=== PATIENT | male | born 1960 | race Caucasian/White ===

== ENCOUNTER 2020-02-06 14:13 | Inpatient (IN) | payer BC ==
--- NOTE | 2020-02-06 16:58 | PDOC ---
Documentation entered by Tatyana Yarbrough SCRIBE, acting as scribe for Jayleen Prado MD. Jayleen Prado MD: This documentation has been prepared by the bobbiibeZenon Ana, SCRIBE, under my direction and personally reviewed by me in its entirety. I confirm that the documentation accurately reflects all work, treatment, procedures, and medical decision making performed by me. Attending Attestation - Resident Resident Name: Maximiliano Bain - ED Attending Attestation I have performed the following: I have examined & evaluated the patient, The case was reviewed & discussed with the resident, I agree w/resident's findings & plan, Exceptions are as noted - HPI HPI: 02/06/20 14:53 Patient is a 59 year old male with a significant past medical history of Diabetes here currently at work visiting from [place] complaining of a wound on the bottom of his left foot states he just noticed it today he went to urgent care at [facility] and was referred to see a grain picker who subsequently sent him to the ER. He denies any pain in his foot however he does have neuropathy no fever no chills no chest pain or shortness of breath he was evaluated [place] x-ray also showed chronic degenerative changes at the MCP joint but no periosteal elevation. Not currently on any antibiotics he scheduled to be here in [place] for several weeks does not have a PCP here in [place]... who presents to the ED with ... pt h/o renal ca, s/p single nephrectomy. Allergies: NKDA 02/06/20 16:54 meds: metformin, glipizide januvia - Physicial Exam PE: 02/06/20 16:55 Awake alert no acute distress lungs are clear bilaterally heart is regular 30 murmurs or gallops abdomen soft nontender extremities are warm and perfused examination of the left foot demonstrates erythema with redness and streaking up the anterior peña he does have a quarter sized wound on the plantar surface of his great toe there is no drainage noted however significant swelling and tenderness he has 2+ DP PT pulses bilaterally no crepitus appreciated neurologically patient is awake alert and oriented x3 - Medical Decision Making 02/06/20 16:55 59-year-old male history of diabetes previous tobacco use quit 8 years ago here with a left foot wound and secondary cellulitis plan likely admit for IV antibiotics we will repeat x-ray as they are not visible here will treat with IV clindamycin and admit due to concerns for immunocompromise poor follow-up and streaking up the leg possible Heart Score/ECG Review #1 General ECG Interpretation: Sinus Rhythm, Normal Intervals, No acute ischemic changes Compared to previous ECG there are: Other (sinus bradycardia 55 bpm. wide p waves.) Discharge - Discharge Information Problems reviewed: Yes Clinical Impression/Diagnosis: Foot ulcer due to secondary DM, Cellulitis, HARRISON (acute kidney injury) - Admission Yes - Follow up/Referral - Patient Discharge Instructions - Post Discharge Activity
[2020-02-06 17:08] LABS: BASO % 1.2 % (0-2.0); EOS % 2.2 % (0-4.5); HEMATOCRIT 38.4 % (35.4-49); HEMOGLOBIN 12.5 GM/dL (11.7-16.9); LYMPH % 23.5 % (8-40); MCH 28.5 pg (25.7-33.7); MCHC 32.5 g/dl (32.0-35.9); MEAN CELL VOLUME 87.7 fl (80-96); MEAN PLT VOLUME 8.8 fl (7.5-11.1); MONO % 7.7 % (3.8-10.2); NEUT % 65.4 % (42.8-82.8); PLATELET COUNT 269 K/MM3 (134-434); RBC 4.38 M/mm3 (4.00-5.60); RDW 15.3 % (11.9-15.9); WHITE BLOOD COUNT 6.9 K/mm3 (4.0-10.0)
[2020-02-06 17:35] LABS: ALBUMIN 3.9 g/dl (3.4-5.0); BILIRUBIN,TOTAL 0.2 mg/dL (0.2-1); BLOOD UREA NITROGEN 24.7 mg/dL (7-18); POTASSIUM 4.2 mmol/L (3.5-5.1); TOT PROT 7.7 g/dl (6.4-8.2)
--- NOTE | 2020-02-06 18:26 | PDOC ---
History of Present Illness - General Chief Complaint: Wound Stated Complaint: LT FOOT INFECTION Time Seen by Provider: 02/06/20 14:31 - History of Present Illness Initial Comments: 59 YOM h/o diabetes, renal cancer s/p nephrectomy presents with left foot wound which he noticed today. Patient reports that he noticed wound today, presented to Urgent Care at [facility] was referred to a service desk team lead who recommended he present to the ED. He denies pain, although reports neuropathy. [place] x-ray showed chronic degenerative changes at the MCP joint but no periosteal elevation. Patient denies fever, chill, CP, SOB, N/V/D. Constitutional: No Weight Change, No Fever, No Chills, No Night Sweats, No Fatigue, No Malaise ENT/Mouth: No Hearing Changes, No Ear Pain, No Nasal Congestion, No Sinus Pain, No Hoarseness, No sore throat, No Rhinorrhea, No Swallowing Difficulty Eyes: No Eye Pain, No Swelling, No Redness, No Foreign Body, No Discharge, No Vision Changes Cardiovascular: No Chest Pain, No SOB, No PND, No Dyspnea on Exertion, No Orthopnea, No Claudication, No Edema, No Palpitations Respiratory: No Cough, No Sputum, No Wheezing, No Smoke Exposure, No Dyspnea Gastrointestinal: No Nausea, No Vomiting, No Diarrhea, No Constipation, No Pain, No Heartburn, No Anorexia, No Dysphagia, No Hematochezia, No Melena, No Flatulence, No Jaundice Genitourinary: No Dysmenorrhea, No DUB, No Dyspareunia, No Dysuria, No Urinary Frequency, No Hematuria, No Urinary Incontinence, No Urgency, No Flank Pain, No Urinary Flow Changes, No Hesitancy Musculoskeletal: No Arthralgias, No Myalgias, No Joint Swelling, No Joint Stif fness, No Back Pain, No Neck Pain, No Injury History Skin: No Skin Lesions, No Pruritis, No Hair Changes, No Breast/Skin Changes, No Nipple Discharge Neuro: No Weakness, No Numbness, No Paresthesias, No Loss of Consciousness, No Syncope, No Dizziness, No Headache, No Coordination Changes, No Recent Falls Psych: No Anxiety/Panic, No Depression, No Insomnia, No Personality Changes, No Delusions, No Rumination, No SI/HI/AH/VH, No Social Issues, No Memory Changes, No Violence/Abuse Hx., No Eating Concerns Heme/Lymph: No Bruising, No Bleeding, No Transfusions History, No Lymphadenopathy Endocrine: No Polyuria, No Polydipsia, No Temperature Intolerance Past History - Medical History Allergies/Adverse Reactions: Allergies Allergy/AdvReac Type Severity Reaction Status Date / Time No Known Allergies Allergy Verified 02/06/20 17:22 Home Medications: Ambulatory Orders Glipizide-Metformin 5-500 mg 1 tab PO TID 02/06/20 Sitagliptin Phosphate [Januvia] 25 mg PO HS 02/06/20 Cancer: Yes (NEPHRECTOMY) COPD: No Diabetes: Yes (NIDDM) Other medical history: Neuropathy - Surgical History Neurologic Surgery: Yes (NEPHRECTOMY) - Immunization History Immunization Up to Date: No - Psycho-Social/Smoking History Smoking History: Former smoker Have you smoked in the past 12 months: No Information on smoking cessation initiated: No - Substance Abuse Hx (Audit-C & DAST Scrn) How often the patient has a drink containing alcohol: Monthly or less Score: In Men: 4 or > Positive; In Women: 3 or > Positive: 1 Screen Result (Pos requires Nsg. Audit-10AR): Negative In the last yr the pt used illegal drug/Rx for NonMed reason: No Score: Yes response is considered Positive: 0 Screen Result (Positive result requires Nsg. DAST-10): Negative *Physical Exam - Vital Signs Last Vital Signs Temp Pulse Resp BP Pulse Ox 97.7 F 70 18 113/55 L 100 02/06/20 14:17 02/06/20 14:17 02/06/20 14:17 02/06/20 14:17 02/06/20 14:17 - Physical Exam General Appearance: Yes: Nourished, Appropriately Dressed HEENT: positive: EOMI, SUSY, Normal ENT Inspection, Normal Voice Neck: positive: Trachea midline, Normal Thyroid Respiratory/Chest: positive: Lungs Clear, Normal Breath Sounds Cardiovascular: positive: Regular Rhythm, Regular Rate, S1, S2 Gastrointestinal/Abdominal: positive: Normal Bowel Sounds, Flat, Soft Musculoskeletal: positive: Normal Inspection Extremity: positive: Other (2 CM wound on plantar surface of left big toe) Integumentary: positive: Normal Color, Dry, Warm Neurologic: positive: gastroenterology technician II-XII NML intact, Fully Oriented, Alert, Normal Mood/Affect, Normal Response, Motor Strength 5/5 ED Treatment Course - LABORATORY CBC & Chemistry Diagram: 02/06/20 16:50 02/06/20 16:50 - ADDITIONAL ORDERS Additional order review: Laboratory Results 02/06/20 02/06/20 16:50 16:50 Sodium 137 Potassium 4.2 Chloride 110 H Carbon Dioxide 20 L Anion Gap 7 L BUN 24.7 H Creatinine 2.0 H Est GFR (CKD-EPI)AfAm 40.54 Est GFR (CKD-EPI)NonAf 34.98 Random Glucose 247 H Lactic Acid 1.4 Calcium 9.0 Total Bilirubin 0.2 AST 17 ALT 27 Alkaline Phosphatase 95 C-Reactive Protein 1.5 H Total Protein 7.7 Albumin 3.9 02/06/20 16:50 RBC 4.38 MCV 87.7 MCHC 32.5 RDW 15.3 MPV 8.8 Neutrophils % 65.4 Lymphocytes % 23.5 Monocytes % 7.7 Eosinophils % 2.2 Basophils % 1.2 - RADIOLOGY Radiology Studies Ordered: Category Date Time Status ANKLE & FOOT-LEFT* [RAD] Stat Radiology 02/06/20 16:41 Completed Medical Decision Making - Medical Decision Making 59 YOM h/o diabetes, renal cancer s/p nephrectomy presents with left foot wound which he noticed today. Patient reports that he noticed wound today, presented to Urgent Care at [facility] was referred to a service desk team lead who recommended he present to the ED. He denies pain, although reports neuropathy. [place] x-ray showed chronic degenerative changes at the MCP joint but no periosteal elevation. Patient denies fever, chill, CP, SOB, N/V/D. Vitals on arrival wnl. Exam reveals 2 cm wound on plantar surface of left big toe. ddx: cellulitis, osteomyelitis plan: CBC, CMP, lactate, blood cultures, x ray left foot, IV antibiotics. reassess: labs wnl, x ray wnl, will admit patient for IV antibiotics. dispo: admit for IV antibiotics. 02/06/20 19:39 Discharge - Discharge Information Problems reviewed: Yes Clinical Impression/Diagnosis: Foot ulcer due to secondary DM, Cellulitis, HARRISON (acute kidney injury) - Follow up/Referral - Patient Discharge Instructions - Post Discharge Activity
[2020-02-06] MEDS ORDERED: VANCOMYCIN 1 GM in D5W (PRE-DOCKED) 1,000 MG/250 ML IVPB ONE (18:28)
[2020-02-06] MEDS ORDERED: PIPERACILLIN/TAZOB 3.375 GM 3.375 GM in DEXTROSE 5%-WATER - 50 ML IVPB ONE (18:30)
[2020-02-06] MEDS ORDERED: PIPERACILLIN/TAZOB 3.375 GM 3.375 GM/50 ML BAG IVPB ONE (19:11)
--- NOTE | 2020-02-06 19:32 | HP ---
CHIEF COMPLAINT: Leg ulcer of unknown noticed today PCP: Julito Sinclair in [place] HISTORY OF PRESENT ILLNESS: Patient is a 59yo DM for 10yrs, now presenting with Lt foot ulcer on dorsum of left foot ulcer of unknown duration. Patient noticed a black ulcer on his left foot this morning and decided to go urgent care at [facility] where he was made to see a entry level project coordinator and his wound got debrided before he was referred to the ED. Patient denies foot pain, however there is an associated numbness and tingling on both feet. Numbness occasionally feels like pain and prevents the patient from falling asleep prompting patient to wear compression stockings to relieve the pain and hopefully fall asleep. When asked what he thinks may have caused his ulcer, he assumes a plastic tape he may have applied to hold antibiotics over his ingrowing toe nail may have pressed and injured the dorsum of the toe without him feeling the pain. Patient denies fever, chills, chest pain or shortness of breath. No dysuria or hematuria. Patient however expereinces occasional urinary frequency which he says happens only when his blood sugar is high. ER course was notable for: (1)Vancomysin (2)Zosyn (3) Recent Travel: Lives in [place], came to [place] on a business trip PAST SURGICAL HISTORY: Lt. 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 Has insurance with [employer] Smoking:Stopped 8yrs ago. Smoked 3ppd/>30yrs Alcohol:Ocassionally about 1-2 bottles/month Drugs: None FHx: Alzheimer disease in mother, DM and WA in father and aunties, Narcolepsy in cousin Allergies: No Known Allergies to food, meds or latex HOME MEDICATIONS: Home Medications Medication Instructions Recorded Glipizide-Metformin 5-500 mg 1 tab PO TID 02/06/20 Sitagliptin Phosphate [Januvia] 25 mg PO HS 02/06/20 REVIEW OF SYSTEMS: Negative except as above Vital Signs - 24 hr 02/06/20 14:17 Temperature 97.7 F Pulse Rate 70 Respiratory 18 Rate Blood Pressure 113/55 L O2 Sat by Pulse 100 Oximetry (%) PHYSICAL EXAMINATION GENERAL: Awake, alert, and fully oriented, in no acute distress. HEAD: Normal with no signs of trauma. EYES: Blurry vision in Left eye, sclera anicteric, conjunctiva clear. No lid lag. Fundoscopy: Retinal vessels not well visualized NECK: Normal range of motion, supple without lymphadenopathy, JVD, or masses. LUNGS: Vesicular breath sounds equal b/l, clear to auscultation bilaterally. No wheezes, and no crackles. No accessory muscle use. HEART: Regular rate and rhythm, normal S1 and S2 without murmur, rub or gallop. ABDOMEN: Soft, nontender, not distended, normoactive bowel sounds, no masses. No hepatomegaly or splenomegaly. MUSCULOSKELETAL: No Rt CVA tenderness. Left kidney absent-Nephrectomy UPPER EXTREMITIES: 2+ pulses, warm, well-perfused. No cyanosis. No clubbing. No peripheral edema. LOWER EXTREMITIES: 2+ pulses, warm, well-perfused. No calf tenderness. No peripheral edema. Dry wound on dorsum of Lt big toe measuring about 1cm wide with a scab over it, non tender, sensation 2/3 with associated b/l foot numbness and tingling sensation. Power is 5/5 on all limbs, sensation is reduced on distal foot 1/3 b/l NEUROLOGICAL: Cranial nerves II-XII intact. Normal speech. Limited vision in right eye when left eye fully closed PSYCHIATRIC: Cooperative. Good eye contact. Appropriate mood and affect. SKIN: Warm, dry, normal turgor,scattered capillary hemangiomas and skin tags over chest wall and a single skin tag on Rt fore head, normal capillary refill. Laboratory Results - last 24 hr 02/06/20 02/06/20 02/06/20 16:50 16:50 16:50 WBC 6.9 RBC 4.38 Hgb 12.5 Hct 38.4 MCV 87.7 MCH 28.5 MCHC 32.5 RDW 15.3 Plt Count 269 MPV 8.8 Absolute Neuts (auto) 4.5 Neutrophils % 65.4 Lymphocytes % 23.5 Monocytes % 7.7 Eosinophils % 2.2 Basophils % 1.2 Nucleated RBC % 0 Sodium 137 Potassium 4.2 Chloride 110 H Carbon Dioxide 20 L Anion Gap 7 L BUN 24.7 H Creatinine 2.0 H Est GFR (CKD-EPI)AfAm 40.54 Est GFR (CKD-EPI)NonAf 34.98 Random Glucose 247 H Lactic Acid 1.4 Calcium 9.0 Total Bilirubin 0.2 AST 17 ALT 27 Alkaline Phosphatase 95 C-Reactive Protein 1.5 H Total Protein 7.7 Albumin 3.9 ASSESSMENT/PLAN: #DIABETIC FOOT ULCER: -Known diabetic -Ulcer on dorsum of Left big toe -Per hx, last 3 A1c 12, 9,10 -Wound and blood culture -MRI of Left foot -N/S 84cc/hr -Consult ID -Continue Vancomysin and Zosyn -Daily wound dressing #UNCONTROLLED DM: -Known DM patient -Per patient, last 3 A1c are 12, 9 and 10 -Patient on Januvia 25mg and Glipizide-Metformin 5/500 tid -Hold home OHGA for now -Implement ISS -BGM ACHS -Patient educated on the importance of medication compliance, exercise and healthy diet on optimal blood glucose control -Pt to follow up with PCP in [place], Opthalmologist and Septic Tank Cleaner on D/C #AZOTHEMIA: -Raised BUN -Patient is probably dehydrated -Continue IV N/S 84cc/hr Family Medical History Family History: As Documented Visit type - Emergency Visit Emergency Visit: Yes ED Registration Date: 02/06/20 Care time: The patient presented to the Emergency Department on the above date and was hospitalized for further evaluation of their emergent condition. - New Patient This patient is new to me today: Yes Date on this admission: 02/06/20 - Critical Care Critical Care patient: No ATTENDING PHYSICIAN STATEMENT I saw and evaluated the patient. I reviewed the resident's note and discussed the case with the resident. I agree with the resident's findings and plan as documented. SUBJECTIVE: OBJECTIVE: ASSESSMENT AND PLAN:
[2020-02-06] MEDS ORDERED: VANCOMYCIN 1 GRAM (PRE-DOCKED) 1,000 MG/250 ML BAG IVPB ONE (19:37)
[2020-02-06] MEDS ORDERED: VANCOMYCIN 1,000 MG in DEXTROSE 5%-WATER - 250 ML IVPB SCH (20:30)
--- NOTE | 2020-02-06 20:44 | PN ---
Teaching Attending Note Name of Resident: Obdulia Burkett ATTENDING PHYSICIAN STATEMENT I saw and evaluated the patient. I reviewed the resident's note and discussed the case with the resident. I agree with the resident's findings and plan as documented. SUBJECTIVE: 59 years old M with PMH of DM, renal ca s/p nephrectomy was referred from podiatry clinic for left foot wound. He denies pain, fever, chills, chest pain, nausea OBJECTIVE: Last Vital Signs Temp Pulse Resp BP Pulse Ox 98.3 F 60 16 107/68 98 02/06/20 19:44 02/06/20 19:44 02/06/20 19:44 02/06/20 19:44 02/06/20 19:44 Laboratory Results - last 24 hr 02/06/20 02/06/20 02/06/20 16:50 16:50 16:50 WBC 6.9 RBC 4.38 Hgb 12.5 Hct 38.4 MCV 87.7 MCH 28.5 MCHC 32.5 RDW 15.3 Plt Count 269 MPV 8.8 Absolute Neuts (auto) 4.5 Neutrophils % 65.4 Lymphocytes % 23.5 Monocytes % 7.7 Eosinophils % 2.2 Basophils % 1.2 Nucleated RBC % 0 Sodium 137 Potassium 4.2 Chloride 110 H Carbon Dioxide 20 L Anion Gap 7 L BUN 24.7 H Creatinine 2.0 H Est GFR (CKD-EPI)AfAm 40.54 Est GFR (CKD-EPI)NonAf 34.98 Random Glucose 247 H Lactic Acid 1.4 Calcium 9.0 Total Bilirubin 0.2 AST 17 ALT 27 Alkaline Phosphatase 95 C-Reactive Protein 1.5 H Total Protein 7.7 Albumin 3.9 General Appearance: Normal built, not in acute distress HEENT: positive: EOMI, SUSY, Normal ENT Inspection, Normal Voice Neck: positive: Trachea midline, Normal Thyroid Respiratory/Chest: positive: Lungs Clear b/l, no added sounds Cardiovascular: positive: Regular Rhythm, Regular Rate, S1, S2, No MRG Gastrointestinal/Abdominal: positive: Normal Bowel Sounds, Flat, Soft Musculoskeletal: positive: Normal Inspection, no edema Extremity: positive: left big toe ulcer 2-3 cm on planter surface , tender to touch, dried pus noted Integumentary: positive: Normal Color, Dry, Warm Neurologic: positive: medical staff manager II-XII NML intact, A&ox3, no focal neurologic deficit ASSESSMENT AND PLAN: Diabetic foot ulcer r/o OM surrounding cellulitis DM, renal ca s/p nephrectomy Kristal vs CKD uncontrolled DM Admit to floor IV hydration UA, urine lytes IV antibiotics Vanco zosyn Start 15 units Levemir at bedtime with sliding scale . goal of sugar 140-160 POCT monitoring Podiatry, ID eval wound culture, blood culture, ESR, CRP DVt ppx discussed with staff in details
[2020-02-06] MEDS: SODIUM CHLORIDE 1,000 ML IV SCH (21:54)
[2020-02-06] MEDS: INSULIN SLIDING SCALE (NOVOLOG) 1 VIAL SQ SCH (22:05)
[2020-02-06] MEDS: HEPARIN NA (PORCINE) 5,000 UNITS/ML 1ML VIAL SQ SCH (22:06)
[2020-02-06 23:14] VITALS: BMI 22.6
[2020-02-07] MEDS ORDERED: PIPERACILLIN/TAZOBACTAM 4.5 GM VIAL IVPB ONE ×2 (01:11→08:40)
[2020-02-07] MEDS ORDERED: DEXTROSE 5%-WATER 100 ML IVPB ONE ×2 (01:11→08:41)
[2020-02-07] MEDS: PIPERACILLIN/TAZOB 4.5 GM 4.5 GM in DEXTROSE 5%-WATER 100 ML IVPB SCH ×2 (01:16→10:48)
[2020-02-07] MEDS ORDERED: PIPERACILLIN/TAZOB 4.5 GM 4.5 GM in DEXTROSE 5%-WATER 100 ML IVPB SCH (02:00)
[2020-02-07] MEDS ORDERED: PIPERACILLIN/TAZOB 3.375 GM 3.375 GM in DEXTROSE 5%-WATER - 50 ML IVPB SCH (02:00)
[2020-02-07] MEDS: INSULIN SLIDING SCALE (NOVOLOG) 1 VIAL SQ SCH ×4 (06:17→21:48)
[2020-02-07] MEDS: HEPARIN NA (PORCINE) 5,000 UNITS/ML 1ML VIAL SQ SCH ×3 (06:17→21:59)
[2020-02-07 06:53] LABS: BASO % 1.6 % (0-2.0); EOS % 2.3 % (0-4.5); HEMATOCRIT 33.2 % (35.4-49); HEMOGLOBIN 10.9 GM/dL (11.7-16.9); LYMPH % 23.8 % (8-40); MCH 28.4 pg (25.7-33.7); MCHC 32.8 g/dl (32.0-35.9); MEAN CELL VOLUME 86.6 fl (80-96); MEAN PLT VOLUME 8.4 fl (7.5-11.1); MONO % 10.2 % (3.8-10.2); NEUT % 62.1 % (42.8-82.8); PLATELET COUNT 241 K/MM3 (134-434); RBC 3.84 M/mm3 (4.00-5.60); RDW 15.1 % (11.9-15.9); WHITE BLOOD COUNT 6.3 K/mm3 (4.0-10.0)
[2020-02-07 07:21] LABS: ALBUMIN 3.1 g/dl (3.4-5.0); BILIRUBIN,TOTAL 0.5 mg/dL (0.2-1); BLOOD UREA NITROGEN 19.6 mg/dL (7-18); CALCIUM 8.6 mg/dL (8.5-10.1); CREATININE 1.8 mg/dL (0.55-1.3); MAGNESIUM 2.1 mg/dL (1.8-2.4); PHOSPHOROUS 2.8 mg/dL (2.5-4.9); POTASSIUM 4.4 mmol/L (3.5-5.1); TOT PROT 6.4 g/dl (6.4-8.2)
--- NOTE | 2020-02-07 07:23 | CONSULT ---
Consult Consult Specialty:: Nephrology Reason for Consultation:: ckd - History of Present Illness Chief Complaint: left foot ulcer History of Present Illness: Pt is a 59 year old gentleman with pmhx of dm, ckd, nephrectomy secondary to RCC who presents to the ER wtih a left foot ulcer. He was sent in fro urgent care. I was called to evaluate him for ckd. He does not follow with a envelope addresser. He denies shortness of breath or chest pain. He denies fevers or chills. He denies dysuria or hematuria. He says that his last cinema or theatre manager was not normal but does not remember the range. He denies nsaid use. - History Source History Provided By: Patient, Medical Record - Past Medical History Renal/: Yes: Renal Inusuff Endocrine: Yes: Diabetes Mellitus - Past Surgical History Past Surgical History: Yes: Nephrectomy - Smoking History Smoking history: Former smoker Have you smoked in the past 12 months: No Home Medications - Allergies Allergies/Adverse Reactions: Allergies Allergy/AdvReac Type Severity Reaction Status Date / Time No Known Allergies Allergy Verified 02/06/20 17:22 - Home Medications Home Medications: Ambulatory Orders Glipizide-Metformin 5-500 mg 1 tab PO TID 02/06/20 Sitagliptin Phosphate [Januvia] 25 mg PO HS 02/06/20 Family Medical History Family History: Denies Review of Systems - Review of Systems Constitutional: reports: No Symptoms Eyes: reports: No Symptoms HENT: reports: No Symptoms Neck: reports: No Symptoms Cardiovascular: reports: No Symptoms Respiratory: reports: No Symptoms Genitourinary: reports: No Symptoms Musculoskeletal: reports: Other (lef leg ulcer) Neurological: reports: No Symptoms Endocrine: reports: No Symptoms Hematology/Lymphatic: reports: No Symptoms Physical Exam Vital Signs: Vital Signs Temperature 97.6 F 02/07/20 06:00 Pulse Rate 52 L 02/07/20 06:00 Respiratory Rate 18 02/07/20 06:00 Blood Pressure 126/61 02/07/20 06:00 O2 Sat by Pulse Oximetry (%) 99 02/07/20 06:00 Constitutional: Yes: Calm Eyes: Yes: Conjunctiva Clear HENT: Yes: Atraumatic Neck: Yes: Supple Cardiovascular: Yes: S1, S2 Respiratory: Yes: CTA Bilaterally Gastrointestinal: Yes: Normal Bowel Sounds, Soft Renal/: Yes: WNL Edema: No Neurological: Yes: Oriented Psychiatric: Yes: Oriented Labs: CBC, BMP 02/07/20 06:07 Imaging - Results Chest X-ray: Report Reviewed Problem List - Problems (1) CKD (chronic kidney disease) Code(s): N18.9 - CHRONIC KIDNEY DISEASE, UNSPECIFIED (2) Cellulitis Code(s): L03.90 - CELLULITIS, UNSPECIFIED Assessment/Plan Current Medications Generic Name Dose Route Start Last Admin Trade Name Freq PRN Reason Stop Dose Admin Heparin Sodium (Porcine) 5,000 unit 02/06/20 22:00 02/07/20 06:17 Heparin - SQ 5,000 unit TID DEBBIE Administration Piperacillin Sod/Tazobactam 100 mls @ 200 mls/hr 02/07/20 02:00 Sod 4.5 gm/ Dextrose IVPB Q8H-IV DEBBIE Protocol Piperacillin Sod/Tazobactam 100 mls @ 200 mls/hr 02/07/20 02:00 02/07/20 01:16 Sod 4.5 gm/ Dextrose IVPB 02/07/20 18:29 200 mls/hr Q8H-IV DEBBIE Administration Protocol Sodium Chloride 1,000 mls @ 75 mls/hr 02/06/20 20:15 02/06/20 21:54 Normal Saline - IV 75 mls/hr ASDIR DEBBIE Administration Vancomycin HCl 1,000 mg/ 250 mls @ 200 mls/hr 02/06/20 20:30 Dextrose IVPB Q24H DEBBIE Protocol Vancomycin HCl 1,000 mg in 250 mls @ 166.667 mls/hr 02/07/20 20:00 Vancomycin (Pre-Docked) IVPB 02/07/20 21:29 Q24H [facility] Protocol Insulin Aspart 1 vial 02/06/20 22:00 02/07/20 06:17 Novolog Vial Sliding Scale - SQ Not Given ACHS [facility] Protocol Insulin Detemir 15 units 02/07/20 22:00 Levemir Vial SQ HS [facility] Laboratory Tests 02/06/20 02/06/20 02/06/20 16:50 16:50 16:50 Hgb 12.5 Creatinine 2.0 H Hemoglobin A1c % Lactic Acid 1.4 COVID-19 ([facility]) 02/06/20 02/07/20 02/07/20 19:15 06:07 06:07 Hgb 10.9 L Creatinine 1.8 H Hemoglobin A1c % Lactic Acid COVID-19 ([facility]) Not detected 02/07/20 08:15 Hgb Creatinine Hemoglobin A1c % 9.9 H Lactic Acid COVID-19 ([facility]) Impression 1. CKD 2. hx of nephrectomy secondary to RCC 3. cellulitis 4. DM poorly controlled Plan - check renal ultrasound - cont to monitor cinema or theatre manager - check ua - obtain outpt records to check baseline cinema or theatre manager - renal dose meds
--- NOTE | 2020-02-07 11:04 | CON.ID ---
Consult Consult Specialty:: infectious diseases Referred by:: hospitalist Reason for Consultation:: non healing ulcer of the rt great toe - History of Present Illness Chief Complaint: non healing ulcer of the rt great toe History of Present Illness: 59yo m with DM now presenting with Lt foot ulcer on dorsum of left foot ulcer of unknown duration. Patient noticed a black ulcer on his left foot this morning and decided to go urgent care at [facility] where he was made to see a golf stud riveter and his wound got debrided before he was referred to the ED. patient denies any trauma and anyother issues he does not know exactly what caused it . Patient denies fever, chills, chest pain or shortness of breath. No dysuria or hematuria. patient is going for imaging studies - History Source History Provided By: Patient Limitations to Obtaining History: No Limitations - Smoking History Smoking history: Former smoker Have you smoked in the past 12 months: No Home Medications - Allergies Allergies/Adverse Reactions: Allergies Allergy/AdvReac Type Severity Reaction Status Date / Time No Known Allergies Allergy Verified 02/06/20 17:22 - Home Medications Home Medications: Ambulatory Orders Glipizide-Metformin 5-500 mg 1 tab PO TID 02/06/20 Sitagliptin Phosphate [Januvia] 25 mg PO HS 02/06/20 Review of Systems - Review of Systems Constitutional: reports: No Symptoms Eyes: reports: No Symptoms HENT: reports: No Symptoms Neck: reports: No Symptoms Cardiovascular: reports: No Symptoms Respiratory: reports: No Symptoms Gastrointestinal: reports: No Symptoms Genitourinary: reports: No Symptoms Musculoskeletal: reports: Other Integumentary: reports: Erythema Neurological: reports: No Symptoms Endocrine: reports: No Symptoms Hematology/Lymphatic: reports: No Symptoms Psychiatric: reports: No Symptoms Physical Exam Vital Signs: Vital Signs Temperature 98.4 F 02/07/20 10:52 Pulse Rate 57 L 02/07/20 10:52 Respiratory Rate 16 02/07/20 10:52 Blood Pressure 138/74 02/07/20 10:52 O2 Sat by Pulse Oximetry (%) 100 02/07/20 10:52 Constitutional: Yes: Well Nourished, No Distress, Calm Eyes: Yes: Conjunctiva Clear HENT: Yes: Atraumatic, Normocephalic Neck: Yes: Supple, Trachea Midline Cardiovascular: Yes: Regular Rate and Rhythm Respiratory: Yes: Regular, CTA Bilaterally Gastrointestinal: Yes: Normal Bowel Sounds, Soft Musculoskeletal: Yes: WNL Extremities: Yes: Erythema (around the toe), Other Integumentary: Yes: Erythema (around left great toe) Wound/Incision: Yes: Clean/Dry, Dressing Removed Neurological: Yes: Alert, Oriented Psychiatric: Yes: Alert, Oriented Labs: CBC, BMP 02/07/20 06:07 02/07/20 06:07 Imaging - Results Chest X-ray: Report Reviewed, Image Reviewed X-ray: Report Reviewed, Image Reviewed Assessment/Plan this patient with multiple medical issues admitted with non healing ulcer of the left great toe Diabetic foot ulcer r/o OM surrounding cellulitis DM, renal ca s/p nephrectomy Kristal vs CKD uncontrolled DM plan will stop all abx await for imaging studies rest as per the team
--- NOTE | 2020-02-07 11:16 | PN ---
Teaching Attending Note Name of Resident: [place] ATTENDING PHYSICIAN STATEMENT I saw and evaluated the patient. I reviewed the resident's note and discussed the case with the resident. I agree with the resident's findings and plan as documented. SUBJECTIVE: no fever or chills. no N/V . he has no painin foot. he thinks erythema and edema in left foor much improved after Abx. he did not have any skin infections or ulcers before. He does not normally inspect feet, but noticed the ulcer only yesterday. has neuropathy in feet. sugar at home ranges form 110-180. rarely it is > 300 . his last A1c 12. he is not aware of CKD but his PCP told him his cr is acceptable . No change in fluid intake or meds recently OBJECTIVE: NAD , awake, alert, pleasant and cooperative . MMM. CV: RRR, no MRG , No JVD Lungs: CTAB Abd: soft, NT, Nd , mid line surgical scar Ext : No edema or erythema on legs/thighs/R foot. mild edema on medial aspect of L foot and big toe. very faint erythema on anterior medial foot. mild tenderness on inferior proximal phalanx around a 1 cm ulcer with small amount of expressed purulent discharge. Dp 2+ b/l ASSMENT AND PLAN:ASSE Tj 59 y/o gentleman with h/o L nephrectomy due to renal cell Ca, DM, and periperal neuropathy who presented with L foot erythema and an ulcer 1- Infected L foot diabetic ulcer with surrounding cellulitis of the foot. Erythema and edema are better. initial response to Abx. - OM is suspected. follow MRI - Took cx from expressed purulent discharge - cont vanco and zosyn, Id approval pending - podiatry consult 2- Possible CKD: unknown cr base line - looks euvolemic - will get UA - obtain protein to cr ratio - renal US pending - will obtain his Cr base line form PCP - Ok with IVF now, but will dc if cr remains stable 3- DM: A1c 9.9 - Cont insulin as inpatient - may cont pills as out pt - refer to podiatry and ophth as out pt 4- DVT PX: SQ heparin
--- NOTE | 2020-02-07 14:31 | PN ---
Physical Exam: SUBJECTIVE: Patient seen and examined, was lying comfortably in bed wearing his own shirt. Said that he is feeling well besides the ulcer on his foot. He said he lives in [place] 10min outside of [place] but is working in this area for a few more weeks. OBJECTIVE: Vital Signs Period Temp Pulse Resp BP Sys/Tang Pulse Ox Last 24 Hr 97.6 F-98.4 F 52-70 16-18 107-138/55-74 97-100 GENERAL: M, appears stated age, thin body habitus, fully oriented, awake lying comfortably in bed, no signs of acute distress HEAD: Normal with no signs of trauma EYES: PERRL, direct and consensual pupillary reflexes intact, extraocular movements intact, conjunctiva is clear ENT: moist mucous membranes LUNGS: CTAB, no wheezing appreciated HEART: RRR, clear S1 and S2 appreciated without murmur ABDOMEN: Soft, nontender, nondistended, active bowel sounds EXTREMITIES: radial and dorsalis pedis pulses easily palpable, warm to touch, no peripheral edema appreciated. L great toe visible larger than R toe due to mildly edema, non-pitting, with a relatively small ulcer ~1.5cm diameter, with mild drainage when squeezed, mild surrounding erythema and tenderness with decreased sensation of the tip of the great toe, no other edema or erythema on the L foot appreciated. Strength and sensation otherwise fully intact in all extremities bilaterally NEUROLOGICAL: Cranial nerves II through XII grossly intact: normal speech, symmetrical facial movements, visual sterling intact, sensation equal and full bilaterally PSYCH: Normal mood, mildly dysphoric affect SKIN: Warm to touch, otherwise no rashes or lesions noted Laboratory Last Values WBC 6.3 K/mm3 (4.0-10.0) 02/07/20 06:07 RBC 3.84 M/mm3 (4.00-5.60) L 02/07/20 06:07 Hgb 10.9 GM/dL (11.7-16.9) L 02/07/20 06:07 Hct 33.2 % (35.4-49) L 02/07/20 06:07 MCV 86.6 fl (80-96) 02/07/20 06:07 MCH 28.4 pg (25.7-33.7) 02/07/20 06:07 MCHC 32.8 g/dl (32.0-35.9) 02/07/20 06:07 RDW 15.1 % (11.9-15.9) 02/07/20 06:07 Plt Count 241 K/MM3 (134-434) 02/07/20 06:07 MPV 8.4 fl (7.5-11.1) 02/07/20 06:07 Absolute Neuts (auto) 3.9 K/mm3 (1.5-8.0) 02/07/20 06:07 Neutrophils % 62.1 % (42.8-82.8) 02/07/20 06:07 Lymphocytes % 23.8 % (8-40) 02/07/20 06:07 Monocytes % 10.2 % (3.8-10.2) 02/07/20 06:07 Eosinophils % 2.3 % (0-4.5) 02/07/20 06:07 Basophils % 1.6 % (0-2.0) 02/07/20 06:07 Nucleated RBC % 0 % (0-0) 02/07/20 06:07 Sodium 142 mmol/L (136-145) 02/07/20 06:07 Potassium 4.4 mmol/L (3.5-5.1) 02/07/20 06:07 Chloride 113 mmol/L (98-107) H 02/07/20 06:07 Carbon Dioxide 23 mmol/L (21-32) 02/07/20 06:07 Anion Gap 6 MMOL/L (8-16) L 02/07/20 06:07 BUN 19.6 mg/dL (7-18) H 02/07/20 06:07 Creatinine 1.8 mg/dL (0.55-1.3) H 02/07/20 06:07 Est GFR (CKD-EPI)AfAm 46.05 02/07/20 06:07 Est GFR (CKD-EPI)NonAf 39.74 02/07/20 06:07 POC Glucometer 193 UNITS (80-120) 02/07/20 12:04 Random Glucose 165 mg/dL (74-106) H 02/07/20 06:07 Hemoglobin A1c % 9.9 % (4.2-6.3) H 02/07/20 08:15 Lactic Acid 1.4 mmol/L (0.4-2.0) 02/06/20 16:50 Calcium 8.6 mg/dL (8.5-10.1) 02/07/20 06:07 Phosphorus 2.8 mg/dL (2.5-4.9) 02/07/20 06:07 Magnesium 2.1 mg/dL (1.8-2.4) 02/07/20 06:07 Total Bilirubin 0.5 mg/dL (0.2-1) 02/07/20 06:07 AST 11 U/L (15-37) L 02/07/20 06:07 ALT 20 U/L (13-61) 02/07/20 06:07 Alkaline Phosphatase 75 U/L (45-117) 02/07/20 06:07 C-Reactive Protein 1.5 MG/DL (0.00-0.3) H 02/06/20 16:50 Total Protein 6.4 g/dl (6.4-8.2) 02/07/20 06:07 Albumin 3.1 g/dl (3.4-5.0) L 02/07/20 06:07 COVID-19 (ROSANNE) Not detected (Not Detected) 02/06/20 19:15 Current Medications Generic Name Dose Route Start Last Admin Trade Name Freq PRN Reason Stop Dose Admin Heparin Sodium (Porcine) 5,000 unit 02/06/20 22:00 02/07/20 06:17 Heparin - SQ 5,000 unit TID DEBBIE Administration Sodium Chloride 1,000 mls @ 75 mls/hr 02/06/20 20:15 02/06/20 21:54 Normal Saline - IV 75 mls/hr ASDIR DEBBIE Administration Insulin Aspart 1 vial 02/06/20 22:00 02/07/20 12:07 Novolog Vial Sliding Scale - SQ 2 units ACHS DEBBIE Administration Protocol Insulin Detemir 15 units 02/07/20 22:00 Levemir Vial SQ HS DEBBIE ASSESSMENT/PLAN: 59yo M with PMHx of uncontrolled DM, previous tobacco user, renal carcinoma s/p L nephrectomy who presented with a L ~1.5cm foot ulcer for which he was admitted. #Diabetic foot ulcer L foot ankle XR - soft tissue ulcer inferior to great toe distal phalanx L foot MRI - reactive changes vs. early osteomyelitis of distal phalanx A1C 9.9 CRP 1.5 - podiatry and ID have been consulted - appreciate recs - was on vanc/sozyn - discontinued per ID (likely holding for 2 weeks for bone debridement and biopsy) - holding home Januvia and Glipizide/Metformin - continue Levemir 15 units HS - continue ISS and serial BGMs #HARRISON - improving BUN 24.7 --> 19.6 Cr 2.0 --> 1.8 - nephrology has been consulted - appreciate recs - continue NS 75 cc/h - kidney renal US ordered - f/u - urine protein/Cr ordered - f/u - UA ordered - f/u - Attempted calling home PCP for previous lab values (baselines) Dr. Julito Sinclair at [phone] - left a voice message #FEN - NS 75 cc/h - replete lytes PRN - diabetic controlled diet #PPX - DVT: heparin #Dispo: continue monitoring in telemetry Visit type - Emergency Visit Emergency Visit: Yes ED Registration Date: 02/06/20 Care time: The patient presented to the Emergency Department on the above date and was hospitalized for further evaluation of their emergent condition. - New Patient This patient is new to me today: Yes Date on this admission: 02/07/20 - Critical Care Critical Care patient: No ATTENDING PHYSICIAN STATEMENT I saw and evaluated the patient. I reviewed the resident's note and discussed the case with the resident. I agree with the resident's findings and plan as documented. SUBJECTIVE: OBJECTIVE: ASSESSMENT AND PLAN:
[2020-02-07] MEDS: SODIUM CHLORIDE 1,000 ML IV SCH ×2 (15:46→21:48)
--- NOTE | 2020-02-07 16:17 | CONSULT ---
Consult Consult Specialty:: Podiatry Reason for Consultation:: Wound left big toe with OM - Smoking History Smoking history: Former smoker Have you smoked in the past 12 months: No Home Medications - Allergies Allergies/Adverse Reactions: Allergies Allergy/AdvReac Type Severity Reaction Status Date / Time No Known Allergies Allergy Verified 02/06/20 17:22 - Home Medications Home Medications: Ambulatory Orders Glipizide-Metformin 5-500 mg 1 tab PO TID 02/06/20 Sitagliptin Phosphate [Januvia] 25 mg PO HS 02/06/20 Physical Exam Vital Signs: Vital Signs Temperature 98.3 F 02/07/20 14:14 Pulse Rate 68 02/07/20 14:14 Respiratory Rate 18 02/07/20 14:14 Blood Pressure 115/61 02/07/20 14:14 O2 Sat by Pulse Oximetry (%) 100 02/07/20 10:52 Gastrointestinal: Yes: Abdomen, Obese Wound/Incision: Yes: Other (grade 3 wound left hallux, +om on mri, -drainage, - cellulitis) Labs: CBC, BMP 02/07/20 06:07 02/07/20 06:07 Assessment/Plan om grade 3 wound Santyl to wound. IVABX as per ID. HBO consult. MRI reviewed with report. Will follow. No sx at this time.
--- NOTE | 2020-02-07 16:56 | EKG ---
Test Reason : Blood Pressure : / mmHG Vent. Rate : 055 BPM Atrial Rate : 055 BPM P-R Int : 132 ms QRS Dur : 088 ms QT Int : 414 ms P-R-T Axes : 056 051 053 degrees QTc Int : 396 ms SINUS BRADYCARDIA WITH SINUS ARRHYTHMIA OTHERWISE NORMAL ECG NO PREVIOUS ECGS AVAILABLE Confirmed by RONIT YEUNG, DONTRELL ([id number]) on 02/07/2020 4:55:46 PM Referred By: Confirmed By:DONTRELL COTTRELL MD
[2020-02-07] MEDS ORDERED: VANCOMYCIN 1 GM in D5W (PRE-DOCKED) 1,000 MG/250 ML IVPB ONE (17:37)
[2020-02-07] MEDS ORDERED: PIPERACILLIN/TAZOB 3.375 GM 3.375 GM in DEXTROSE 5%-WATER - 50 ML IVPB ONE (17:40)
[2020-02-07] MEDS: COLLAGENASE CLOSTRIDIUM HIST. 30 GRAMS TUBE TP SCH (19:07)
[2020-02-07] MEDS ORDERED: VANCOMYCIN 1 GRAM (PRE-DOCKED) 1,000 MG/250 ML BAG IVPB SCH (20:00)
[2020-02-07 20:01] LABS: URINE APPEARANCE CLEAR; URINE BILIRUBIN NEGATIVE (NEGATIVE); URINE COLOR YELLOW; URINE GLUCOSE (UA) 3+ (NEGATIVE); URINE KETONE NEGATIVE (NEGATIVE); URINE LEUK ESTERASE NEGATIVE (NEGATIVE); URINE NITRITE NEGATIVE (NEGATIVE); URINE PROTEIN TRACE (NEGATIVE); URINE UROBILINOGEN 0.2 mg/dL (0.2-1.0)
[2020-02-07] MEDS ORDERED: INSULIN (LEVEMIR) 100 UNITS/ML UNITS SQ SCH (22:00)
[2020-02-08] MEDS ORDERED: INSULIN (NOVOLOG) ASPART 100 UNITS/ML 10ML VIAL ONE ×2 (05:42→12:04)
[2020-02-08] MEDS: HEPARIN NA (PORCINE) 5,000 UNITS/ML 1ML VIAL SQ SCH ×2 (05:50→13:57)
[2020-02-08] MEDS: SODIUM CHLORIDE 1,000 ML IV SCH (05:51)
[2020-02-08] MEDS: INSULIN SLIDING SCALE (NOVOLOG) 1 VIAL SQ SCH ×3 (06:07→17:23)
[2020-02-08 06:55] LABS: ALBUMIN 3.1 g/dl (3.4-5.0); BILIRUBIN,TOTAL 0.3 mg/dL (0.2-1); BLOOD UREA NITROGEN 15.8 mg/dL (7-18); CALCIUM 8.2 mg/dL (8.5-10.1); CREATININE 1.5 mg/dL (0.55-1.3); TOT PROT 6.2 g/dl (6.4-8.2)
[2020-02-08 08:29] LABS: HEMATOCRIT 33.5 % (35.4-49); HEMOGLOBIN 11.2 GM/dL (11.7-16.9); MCH 29.5 pg (25.7-33.7); MCHC 33.3 g/dl (32.0-35.9); MEAN CELL VOLUME 88.5 fl (80-96); MEAN PLT VOLUME 8.8 fl (7.5-11.1); PLATELET COUNT 228 K/MM3 (134-434); RBC 3.78 M/mm3 (4.00-5.60); RDW 14.8 % (11.9-15.9); WHITE BLOOD COUNT 7.3 K/mm3 (4.0-10.0)
[2020-02-08 09:34] LABS: MAGNESIUM 1.8 mg/dL (1.8-2.4)
[2020-02-08] MEDS ORDERED: VANCOMYCIN 1 GM in D5W (PRE-DOCKED) 1,000 MG/250 ML IVPB SCH ×2 (10:00→19:00)
[2020-02-08] MEDS ORDERED: PIPERACILLIN/TAZOBACTAM 3.375 GM VIAL IVPB ONE (11:42)
[2020-02-08] MEDS ORDERED: DEXTROSE 5%-WATER - 50 ML IVPB ONE (11:43)
[2020-02-08] MEDS: COLLAGENASE CLOSTRIDIUM HIST. 30 GRAMS TUBE TP SCH (11:44)
[2020-02-08] MEDS: PIPERACILLIN/TAZOB 3.375 GM 3.375 GM in DEXTROSE 5%-WATER - 50 ML IVPB ONE ×2 (11:44→11:55)
--- NOTE | 2020-02-08 12:23 | PN ---
Progress Note, Physician History of Present Illness: stable no new issues - Current Medication List Current Medications: Active Medications Collagenase (Santyl -) 1 applic TP DAILY DEBBIE; Protocol Last Admin: 02/08/20 11:44 Dose: 1 appful Documented by: Heparin Sodium (Porcine) (Heparin -) 5,000 unit SQ TID DEBBIE Last Admin: 02/08/20 05:50 Dose: 5,000 unit Documented by: Sodium Chloride (Normal Saline -) 1,000 mls @ 75 mls/hr IV ASDIR DEBBIE Last Admin: 02/08/20 05:51 Dose: 75 mls/hr Documented by: Insulin Aspart (Novolog Vial Sliding Scale -) 1 vial SQ ACHS DEBBIE; Protocol Last Admin: 02/08/20 12:06 Dose: 4 units Documented by: Insulin Detemir (Levemir Vial) 15 units SQ HS DEBBIE Last Admin: 02/07/20 21:52 Dose: 15 units Documented by: Vancomycin HCl (Vancomycin (Pre-Docked)) 1,000 mg IVPB DAILY DEBBIE; Protocol Vancomycin HCl (Vancomycin (Pre-Docked)) 1,000 mg IVPB DAILY DEBBIE; Protocol Stop: 02/08/20 19:01 - Objective Vital Signs: Vital Signs Temperature 98.1 F 02/08/20 06:00 Pulse Rate 62 02/08/20 06:00 Respiratory Rate 18 02/08/20 06:00 Blood Pressure 118/64 02/08/20 06:00 O2 Sat by Pulse Oximetry (%) 100 02/08/20 06:00 Constitutional: Yes: No Distress, Calm Cardiovascular: Yes: S1, S2 Respiratory: Yes: Regular, CTA Bilaterally Gastrointestinal: Yes: Normal Bowel Sounds, Soft Musculoskeletal: Yes: WNL Extremities: Yes: Other Wound/Incision: Yes: Dressing Dry and Intact Neurological: Yes: Alert, Oriented Psychiatric: Yes: Alert, Oriented Labs: CBC, BMP 02/08/20 05:28 02/08/20 05:28 Assessment/Plan this patient with multiple medical issues admitted with non healing ulcer of the left great toe Diabetic foot ulcer r/o OM surrounding cellulitis DM, renal ca s/p nephrectomy Kristal vs CKD uncontrolled DM looked at the imaging studies i have low suspicion of osteo but in view of his severe diabetes and the wound right on the hallux will lean towards treating him as osteo will suggest giving ceftriaxone 2 gm daily for 6 weeks rest as per the team
--- NOTE | 2020-02-08 12:27 | PN ---
Physical Exam: SUBJECTIVE: Patient seen and examined bedside. In no distress, pain in toe is minimal. Denies and fever, chills, n/v/d, chest pain or SOB. Discussed patient's good response to levemir last night and how he would feel about using insulin care home. Patient is okay with starting insulin for his DM when discharged. OBJECTIVE: Vital Signs 02/08/20 06:00 Temperature 98.1 F Pulse Rate 62 Respiratory 18 Rate Blood Pressure 118/64 O2 Sat by Pulse 100 Oximetry (%) GENERAL: The patient is awake, alert, and fully oriented, in no acute distress. HEAD: Normal with no signs of trauma. EYES: PERRL, extraocular movements intact ENT: moist mucous membranes. LUNGS: equal, CTA BL HEART: Regular rate and rhythm, S1, S2 ABDOMEN: Soft, nontender, nondistended EXTREMITIES: 2+ pulses, warm, well-perfused, no edema. Right first digit with ulcer on plantar aspect. Eschar in middle of wound. No purulent discharge noted, minimal serous drainage. NEUROLOGICAL: Cranial nerves II through XII grossly intact. Normal speech, gait not observed. PSYCH: Normal mood, normal affect. SKIN: Warm, dry, no rashes or lesions noted Laboratory Results - last 24 hr 02/06/20 02/07/20 02/07/20 19:15 16:59 19:06 WBC RBC Hgb Hct MCV MCH MCHC RDW Plt Count MPV Sodium Potassium Chloride Carbon Dioxide Anion Gap BUN Creatinine Est GFR (CKD-EPI)AfAm Est GFR (CKD-EPI)NonAf POC Glucometer 181 Random Glucose Calcium Phosphorus Magnesium Total Bilirubin AST ALT Alkaline Phosphatase Total Protein Albumin Urine Color Urine Appearance Urine pH Ur Specific [place] Urine Protein Urine Glucose (UA) Urine Ketones Urine Blood Urine Nitrite Urine Bilirubin Urine Urobilinogen Ur Leukocyte Esterase Ur Random Creatinine 49.0 U Random Total Protein 33.9 H Ur Random Sodium Ur Random Potassium Ur Random Chloride Protein/Creatinin Ratio 0.7 COVID-19 (ROSANNE) Not detected 02/07/20 02/07/20 02/07/20 19:06 19:06 21:39 WBC RBC Hgb Hct MCV MCH MCHC RDW Plt Count MPV Sodium Potassium Chloride Carbon Dioxide Anion Gap BUN Creatinine Est GFR (CKD-EPI)AfAm Est GFR (CKD-EPI)NonAf POC Glucometer 204 Random Glucose Calcium Phosphorus Magnesium Total Bilirubin AST ALT Alkaline Phosphatase Total Protein Albumin Urine Color Yellow Urine Appearance Clear Urine pH 5.0 Ur Specific [place] 1.018 Urine Protein Trace Urine Glucose (UA) 3+ H Urine Ketones Negative Urine Blood Negative Urine Nitrite Negative Urine Bilirubin Negative Urine Urobilinogen 0.2 Ur Leukocyte Esterase Negative Ur Random Creatinine 52.0 U Random Total Protein Ur Random Sodium 83 Ur Random Potassium 12.0 L Ur Random Chloride 97 L Protein/Creatinin Ratio COVID-19 (ROSANNE) 02/08/20 02/08/20 02/08/20 05:28 05:28 05:49 WBC 7.3 RBC 3.78 L Hgb 11.2 L Hct 33.5 L MCV 88.5 MCH 29.5 MCHC 33.3 RDW 14.8 Plt Count 228 MPV 8.8 Sodium 139 Potassium 4.0 Chloride 111 H Carbon Dioxide 22 Anion Gap 7 L BUN 15.8 Creatinine 1.5 H Est GFR (CKD-EPI)AfAm 57.41 Est GFR (CKD-EPI)NonAf 49.53 POC Glucometer 84 Random Glucose 90 Calcium 8.2 L Phosphorus 2.0 L Magnesium 1.8 Total Bilirubin 0.3 AST 11 L ALT 18 Alkaline Phosphatase 68 Total Protein 6.2 L Albumin 3.1 L Urine Color Urine Appearance Urine pH Ur Specific [place] Urine Protein Urine Glucose (UA) Urine Ketones Urine Blood Urine Nitrite Urine Bilirubin Urine Urobilinogen Ur Leukocyte Esterase Ur Random Creatinine U Random Total Protein Ur Random Sodium Ur Random Potassium Ur Random Chloride Protein/Creatinin Ratio COVID-19 (ROSANNE) 02/08/20 12:01 WBC RBC Hgb Hct MCV MCH MCHC RDW Plt Count MPV Sodium Potassium Chloride Carbon Dioxide Anion Gap BUN Creatinine Est GFR (CKD-EPI)AfAm Est GFR (CKD-EPI)NonAf POC Glucometer 234 Random Glucose Calcium Phosphorus Magnesium Total Bilirubin AST ALT Alkaline Phosphatase Total Protein Albumin Urine Color Urine Appearance Urine pH Ur Specific [place] Urine Protein Urine Glucose (UA) Urine Ketones Urine Blood Urine Nitrite Urine Bilirubin Urine Urobilinogen Ur Leukocyte Esterase Ur Random Creatinine U Random Total Protein Ur Random Sodium Ur Random Potassium Ur Random Chloride Protein/Creatinin Ratio COVID-19 (ROSANNE) Active Medications Generic Name Dose Route Start Last Admin Trade Name Freq PRN Reason Stop Dose Admin Collagenase 1 applic 02/07/20 16:30 02/08/20 11:44 Santyl - TP 1 appful DAILY DEBBIE Administration Protocol Heparin Sodium (Porcine) 5,000 unit 02/06/20 22:00 02/08/20 05:50 Heparin - SQ 5,000 unit TID DEBBIE Administration Sodium Chloride 1,000 mls @ 75 mls/hr 02/06/20 20:15 02/08/20 05:51 Normal Saline - IV 75 mls/hr ASDIR DEBBIE Administration Insulin Aspart 1 vial 02/06/20 22:00 02/08/20 12:06 Novolog Vial Sliding Scale - SQ 4 units ACHS DEBBIE Administration Protocol Insulin Detemir 15 units 02/07/20 22:00 02/07/20 21:52 Levemir Vial SQ 15 units HS DEBBIE Administration Vancomycin HCl 1,000 mg 02/08/20 10:00 Vancomycin (Pre-Docked) IVPB DAILY DEBBIE Protocol Vancomycin HCl 1,000 mg 02/08/20 19:00 Vancomycin (Pre-Docked) IVPB 02/08/20 19:01 DAILY DEBBIE Protocol Limited retroperitoneal ultrasound. TECHNIQUE: Real-time limited retroperitoneal ultrasound with color-flow Doppler was performed by radiology teacher. FINDINGS: The right kidney measures 12.9 x 6.0 x 5.2 cm. The right renal cortical parenchymal echogenicity is within normal limits. There is no right renal mass, stones, or hydronephrosis. There is a 1.4 x 1.5 x 1.4 cm simple appearing right renal cyst. The patient is status post left nephrectomy with no focal mass or fluid collection in the left renal fossa. IMPRESSION: 1.4 x 1.5 x 1.4 cm simple appearing right lower renal pole cyst. Status post left nephrectomy. ASSESSMENT/PLAN: 59yo M with PMHx of uncontrolled DM, previous tobacco user, renal carcinoma s/p L nephrectomy who presented with a L ~1.5cm foot ulcer, admitted for cellulitis & r/o osteomyelitis. Diabetic foot ulcer: possible OM - podiatry consulted Santly to wound daily HBO eval no bone biopsy - ID consulted (Dr. Allen) vanc/Zosyn were given ceftriaxone 2 gm daily for 6 weeks DM - A1C 9.9 - holding home Januvia and Glipizide/Metformin - Levemir 15 units HS: good response, AM sugar 84 - continue ISS and serial BGMs - D/C home with 10 Units Levemir AM and ISS and Metformin CKD with HARRISON - improving - nephrology has been consulted - hx of nephrectomy secondary to RCC - renal US results above - no hydro, no stones FEN - NS 75 cc/h - replete lytes PRN - diabetic controlled diet PPX - DVT: heparin Dispo: Needs IV abx for 2 weeks, will need picc line. Discussing with caser patient options. Visit type - Emergency Visit Emergency Visit: Yes ED Registration Date: 02/06/20 Care time: The patient presented to the Emergency Department on the above date and was hospitalized for further evaluation of their emergent condition. - New Patient This patient is new to me today: No - Critical Care Critical Care patient: No - Discharge Referral Referred to [facility] Med [facility] No ATTENDING PHYSICIAN STATEMENT I saw and evaluated the patient. I reviewed the resident's note and discussed the case with the resident. I agree with the resident's findings and plan as documented. SUBJECTIVE: OBJECTIVE: ASSESSMENT AND PLAN:
[2020-02-08] MEDS ORDERED: CEFTRIAXONE 2 GM in DEXTROSE 5%-WATER 100 ML IVPB SCH (12:30)
[2020-02-08] MEDS ORDERED: DEXTROSE 5%-WATER 100 ML IVPB ONE (13:56)
--- NOTE | 2020-02-08 14:27 | PN ---
Teaching Attending Note Name of Resident: Danae Mckeon ATTENDING PHYSICIAN STATEMENT I saw and evaluated the patient. I reviewed the resident's note and discussed the case with the resident. I agree with the resident's findings and plan as documented. SUBJECTIVE: No fever or chills. No BERMAN , no N/V/D . no diarrhea OBJECTIVE: OBJECTIVE: NAD , awake, alert, pleasant and cooperative . MMM. CV: RRR, no MRG , No JVD Lungs: CTAB Abd: soft, NT, ND, mid line surgical scar Ext : L foot ulcer on plantar aspect of proximal phalanx of 1st toe is still the alejandra. no discharge is expressed today . no erythema on foot . ASSESSMENT AND PLAN Pleasant 59 y/o gentleman with h/o L nephrectomy due to renal cell Ca, DM, and periperal neuropathy who presented with L foot erythema and an ulcer 1- Infected L foot diabetic ulcer with surrounding cellulitis of the foot. - MRI with possible OM. - d/w dr. Allen. Ceftriaxone x 6 weeks - will place a tunneled cath order - podiatry input noted . f.u as out pt 2- Possible CKD: unknown cr base line , unable to obtain form PCP ( out pt josé miguel via dosing of 25 mg suggest decreased CrCl) - looks euvolemic - dc IVF . f/u with renal as out pt 3- DM: A1c 9.9 - due to presence of infection , and due to reported occasional sugars in 300s, his sugar needs tighter control . will dc home on 10 of levemir in am , and SSI and metformin RN to teach him haow to use insulinand check sugar will prescribe glucometer and accessories dc home today with Iv Abx and VNS. he lives in a hotel now, but [facility] services can transfer to his home if he goes back . d/w JASSI
[2020-02-08] MEDS ORDERED: NAPH,MB-DB/K PH,MBDB POWDER PACKET PO ONE ×2 (14:32→16:22)
[2020-02-08 15:02] VITALS: BP 135/69; PULSE 57; TEMP 98.4
--- NOTE | 2020-02-08 15:49 | DS ---
Physical Exam: SUBJECTIVE: Patient seen and examined bedside. In no distress, pain in toe is minimal. Denies and fever, chills, n/v/d, chest pain or SOB. Discussed patient's good response to levemir last night and how he would feel about using insulin detention. Patient is okay with starting insulin for his DM when discharged. OBJECTIVE: Vital Signs Period Temp Pulse Resp BP Sys/Tang Pulse Ox Last 24 Hr 98.1 F-98.4 F 52-62 18-18 113-135/61-69 99-100 PHYSICAL EXAM GENERAL: The patient is awake, alert, and fully oriented, in no acute distress. HEAD: Normal with no signs of trauma. EYES: PERRL, extraocular movements intact ENT: moist mucous membranes. LUNGS: equal, CTA BL HEART: Regular rate and rhythm, S1, S2 ABDOMEN: Soft, nontender, nondistended EXTREMITIES: 2+ pulses, warm, well-perfused, no edema. Right first digit with ulcer on plantar aspect. Eschar in middle of wound. No purulent discharge noted, minimal serous drainage. NEUROLOGICAL: Cranial nerves II through XII grossly intact. Normal speech, gait not observed. PSYCH: Normal mood, normal affect. SKIN: Warm, dry, no rashes or lesions noted LABS Laboratory Results 02/06/20 02/06/20 02/06/20 16:50 16:50 16:50 WBC 6.9 RBC 4.38 Hgb 12.5 Hct 38.4 MCV 87.7 MCH 28.5 MCHC 32.5 RDW 15.3 Plt Count 269 MPV 8.8 Absolute Neuts (auto) 4.5 Neutrophils % 65.4 Lymphocytes % 23.5 Monocytes % 7.7 Eosinophils % 2.2 Basophils % 1.2 Nucleated RBC % 0 Sodium 137 Potassium 4.2 Chloride 110 H Carbon Dioxide 20 L Anion Gap 7 L BUN 24.7 H Creatinine 2.0 H Est GFR (CKD-EPI)AfAm 40.54 Est GFR (CKD-EPI)NonAf 34.98 POC Glucometer Random Glucose 247 H Hemoglobin A1c % Lactic Acid 1.4 Calcium 9.0 Phosphorus Magnesium Total Bilirubin 0.2 AST 17 ALT 27 Alkaline Phosphatase 95 C-Reactive Protein 1.5 H Total Protein 7.7 Albumin 3.9 Urine Color Urine Appearance Urine pH Ur Specific [place] Urine Protein Urine Glucose (UA) Urine Ketones Urine Blood Urine Nitrite Urine Bilirubin Urine Urobilinogen Ur Leukocyte Esterase Ur Random Creatinine U Random Total Protein Ur Random Sodium Ur Random Potassium Ur Random Chloride Protein/Creatinin Ratio COVID-19 (ROSANNE) 02/06/20 02/06/20 02/07/20 19:15 21:53 06:07 WBC 6.3 RBC 3.84 L Hgb 10.9 L Hct 33.2 L MCV 86.6 MCH 28.4 MCHC 32.8 RDW 15.1 Plt Count 241 MPV 8.4 Absolute Neuts (auto) 3.9 Neutrophils % 62.1 Lymphocytes % 23.8 Monocytes % 10.2 Eosinophils % 2.3 Basophils % 1.6 Nucleated RBC % 0 Sodium Potassium Chloride Carbon Dioxide Anion Gap BUN Creatinine Est GFR (CKD-EPI)AfAm Est GFR (CKD-EPI)NonAf POC Glucometer 154 Random Glucose Hemoglobin A1c % Lactic Acid Calcium Phosphorus Magnesium Total Bilirubin AST ALT Alkaline Phosphatase C-Reactive Protein Total Protein Albumin Urine Color Urine Appearance Urine pH Ur Specific [place] Urine Protein Urine Glucose (UA) Urine Ketones Urine Blood Urine Nitrite Urine Bilirubin Urine Urobilinogen Ur Leukocyte Esterase Ur Random Creatinine U Random Total Protein Ur Random Sodium Ur Random Potassium Ur Random Chloride Protein/Creatinin Ratio COVID-19 (ROSANNE) Not detected 02/07/20 02/07/20 02/07/20 06:07 06:15 08:15 WBC RBC Hgb Hct MCV MCH MCHC RDW Plt Count MPV Absolute Neuts (auto) Neutrophils % Lymphocytes % Monocytes % Eosinophils % Basophils % Nucleated RBC % Sodium 142 Potassium 4.4 Chloride 113 H Carbon Dioxide 23 Anion Gap 6 L BUN 19.6 H Creatinine 1.8 H Est GFR (CKD-EPI)AfAm 46.05 Est GFR (CKD-EPI)NonAf 39.74 POC Glucometer 134 Random Glucose 165 H Hemoglobin A1c % 9.9 H Lactic Acid Calcium 8.6 Phosphorus 2.8 Magnesium 2.1 Total Bilirubin 0.5 AST 11 L ALT 20 Alkaline Phosphatase 75 C-Reactive Protein Total Protein 6.4 Albumin 3.1 L Urine Color Urine Appearance Urine pH Ur Specific [place] Urine Protein Urine Glucose (UA) Urine Ketones Urine Blood Urine Nitrite Urine Bilirubin Urine Urobilinogen Ur Leukocyte Esterase Ur Random Creatinine U Random Total Protein Ur Random Sodium Ur Random Potassium Ur Random Chloride Protein/Creatinin Ratio COVID-19 (ROSANNE) 02/07/20 02/07/20 02/07/20 12:04 16:59 19:06 WBC RBC Hgb Hct MCV MCH MCHC RDW Plt Count MPV Absolute Neuts (auto) Neutrophils % Lymphocytes % Monocytes % Eosinophils % Basophils % Nucleated RBC % Sodium Potassium Chloride Carbon Dioxide Anion Gap BUN Creatinine Est GFR (CKD-EPI)AfAm Est GFR (CKD-EPI)NonAf POC Glucometer 193 181 Random Glucose Hemoglobin A1c % Lactic Acid Calcium Phosphorus Magnesium Total Bilirubin AST ALT Alkaline Phosphatase C-Reactive Protein Total Protein Albumin Urine Color Urine Appearance Urine pH Ur Specific [place] Urine Protein Urine Glucose (UA) Urine Ketones Urine Blood Urine Nitrite Urine Bilirubin Urine Urobilinogen Ur Leukocyte Esterase Ur Random Creatinine 49.0 U Random Total Protein 33.9 H Ur Random Sodium Ur Random Potassium Ur Random Chloride Protein/Creatinin Ratio 0.7 COVID-19 (ROSANNE) 02/07/20 02/07/20 02/07/20 19:06 19:06 21:39 WBC RBC Hgb Hct MCV MCH MCHC RDW Plt Count MPV Absolute Neuts (auto) Neutrophils % Lymphocytes % Monocytes % Eosinophils % Basophils % Nucleated RBC % Sodium Potassium Chloride Carbon Dioxide Anion Gap BUN Creatinine Est GFR (CKD-EPI)AfAm Est GFR (CKD-EPI)NonAf POC Glucometer 204 Random Glucose Hemoglobin A1c % Lactic Acid Calcium Phosphorus Magnesium Total Bilirubin AST ALT Alkaline Phosphatase C-Reactive Protein Total Protein Albumin Urine Color Yellow Urine Appearance Clear Urine pH 5.0 Ur Specific [place] 1.018 Urine Protein Trace Urine Glucose (UA) 3+ H Urine Ketones Negative Urine Blood Negative Urine Nitrite Negative Urine Bilirubin Negative Urine Urobilinogen 0.2 Ur Leukocyte Esterase Negative Ur Random Creatinine 52.0 U Random Total Protein Ur Random Sodium 83 Ur Random Potassium 12.0 L Ur Random Chloride 97 L Protein/Creatinin Ratio COVID-19 (ROSANNE) 02/08/20 02/08/20 02/08/20 05:28 05:28 05:49 WBC 7.3 RBC 3.78 L Hgb 11.2 L Hct 33.5 L MCV 88.5 MCH 29.5 MCHC 33.3 RDW 14.8 Plt Count 228 MPV 8.8 Absolute Neuts (auto) Neutrophils % Lymphocytes % Monocytes % Eosinophils % Basophils % Nucleated RBC % Sodium 139 Potassium 4.0 Chloride 111 H Carbon Dioxide 22 Anion Gap 7 L BUN 15.8 Creatinine 1.5 H Est GFR (CKD-EPI)AfAm 57.41 Est GFR (CKD-EPI)NonAf 49.53 POC Glucometer 84 Random Glucose 90 Hemoglobin A1c % Lactic Acid Calcium 8.2 L Phosphorus 2.0 L Magnesium 1.8 Total Bilirubin 0.3 AST 11 L ALT 18 Alkaline Phosphatase 68 C-Reactive Protein Total Protein 6.2 L Albumin 3.1 L Urine Color Urine Appearance Urine pH Ur Specific [place] Urine Protein Urine Glucose (UA) Urine Ketones Urine Blood Urine Nitrite Urine Bilirubin Urine Urobilinogen Ur Leukocyte Esterase Ur Random Creatinine U Random Total Protein Ur Random Sodium Ur Random Potassium Ur Random Chloride Protein/Creatinin Ratio COVID-19 (ROSANNE) 02/08/20 02/08/20 12:01 17:20 WBC RBC Hgb Hct MCV MCH MCHC RDW Plt Count MPV Absolute Neuts (auto) Neutrophils % Lymphocytes % Monocytes % Eosinophils % Basophils % Nucleated RBC % Sodium Potassium Chloride Carbon Dioxide Anion Gap BUN Creatinine Est GFR (CKD-EPI)AfAm Est GFR (CKD-EPI)NonAf POC Glucometer 234 153 Random Glucose Hemoglobin A1c % Lactic Acid Calcium Phosphorus Magnesium Total Bilirubin AST ALT Alkaline Phosphatase C-Reactive Protein Total Protein Albumin Urine Color Urine Appearance Urine pH Ur Specific [place] Urine Protein Urine Glucose (UA) Urine Ketones Urine Blood Urine Nitrite Urine Bilirubin Urine Urobilinogen Ur Leukocyte Esterase Ur Random Creatinine U Random Total Protein Ur Random Sodium Ur Random Potassium Ur Random Chloride Protein/Creatinin Ratio COVID-19 (ROSANNE) HOSPITAL COURSE: Patient is a 59 yo Male with PMHx of DM with periperal neuropathy & renal ca s/p nephrectomy, presented to the ED from podiatry with Left first digit ulcer on dorsum of left big toe with erythema that he first noticed that day. He was admitted for an infected L foot diabetic ulcer with surrounding cellulitis of the foot. The patient was started on IV vanc & zosyn and was evaluated by ID and podiatry. An MRI was performed that was suspicious, but not conclusive, for osteomyelitis. However, given the patient's diabetes and high risk for osteo, ID thought it most appropriate to treat the patient for osteomyelitis. His wound was treated topically with Santyl. He was discharged with tunnel catheter for treatment for 6 weeks of IV ceftriaxone 2 gm daily. On admission patient had elevated BUN/Cr and elevated sugars. Patient denied ever being told he had CKD, and the team was unable to get a hold of his primary doctor. Patient's BUN/Cr decreased with fluids and we believe he had HARRISON on top of existing CKD. His sugars were poorly controlled and his A1c was 9.9. In the hospital the patient was started on Levemir daily with good effect. He was discharged home on Metoformin 500 ER, 10 units Levemir in AM before breakfast, and sliding scale instructions for Novolog. His Januvia and glipizide-metformin combination drug were stopped. He was encouraged to log his sugars and follow up with his primary doctor or case consultant. Date of Admission:02/06/20 Date of Discharge: 02/08/20 Minutes to complete discharge: 40 Discharge Summary Problems reviewed: Yes Reason For Visit: CELLULITIS ULCER OF FOOT DUE TO SECONDARY DIABETES Current Active Problems HARRISON (acute kidney injury) (Acute) Cellulitis (Acute) Foot ulcer due to secondary DM (Acute) Osteomyelitis (Acute) CKD (chronic kidney disease) (Chronic) Condition: Improved - Instructions Diet, Activity, Other Instructions: Visit: You came to the hospital because of a wound on your left big toe that you noticed. You first went to an urgent care where the wound was cleaned up before they sent you to the emergency room. You were admitted for IV antibiotic treatment for infection. While in the hospital, you had an MRI of your foot that showed possible infection of the bone in your big toe. Because of this, we are discharging you with a tunneled catheter so you can continue receiving IV antibiotics without staying in the hospital. While in the hospital we also noticed your sugars were elevated and your Hemoglobin A1c that we use to measure your diabetes was 9.9. Your hemoglobin A1c goal is 7.0. We started you on a long acting insulin called Levemir in the hospital with good effect. We recommended you to continue using insulin as an outpatient for better control of your sugars. Please check your sugars every morning when you wake up,and before each meal, and at night before you go to bed. Write down all your numbers and keep track of them to bring to your primary care doctor. Because of the numbness in your feet due to your diabetes, it's very important for you to check your feet every day for wounds or cuts. Keep you feet dry, consider a powder on your feet after your shower to keep them dry. You should go to a switchboard operator (foot doctor) twice a year to have your feet checked. You should also go to an lead systems developer (eye doctor) at least once a year to have a proper eye exam, as diabetes and affect your vision. While taking insulin, please keep juice on your nightstand in case you wake up or in the middle of the night feel like your may have low sugar levels. Symptoms of very low blood sugar include but are not limited to: Feeling shaky, Being nervous or anxious, Sweating, chills and clamminess, Irritability or impatience, Confusion, Fast heartbeat, Feeling lightheaded or dizzy, Hunger, Nausea, Color draining from the skin (pallor), Feeling Sleepy, Feeling weak or having no energy, Blurred/impaired vision, Tingling or numbness in the lips, tongue, or cheeks, Headaches, Coordination problems, clumsiness, Nightmares or crying out during sleep, & Seizures. call your doctor if hypoglycemia happens or if sugar is > 350 Medications: We are discharging you with CoreAm infusion that will give you antibiotics through your tunnel catheter daily for 6 weeks. You will be getting Ceftriaxone 2 mg IV daily for 6 weeks. [facility] will also be drawing blood and sending them to Dr. French your infectious disease specialist. Please STOP taking Januvia and STOP taking your glipizide-metformin combination drug. START taking Metformin ER 500 mg daily START taking Levemir 10 Units EVERY MORNING BEFORE BREAKFAST START taking Novolog if needed using this scale before each meal Glucose between 100 - 150: 0 units of novolog Glucose between 151 - 200: 2 units of novolog Glucose between 201 - 250: 4 units of novolog Glucose between 251 - 300: 6 units of novolog Glucose between 301 - 350: 8 units of novolog Glucose between 351 - 400: 10 units of novolog > 400 take 12 units and please call your doctor or head to an emergency room to make sure you sugars are stable and your don't require higher medical intervention. How to take insulin: Insulin is normally injected under the skin with a very small needle. It can also be taken with an insulin pen. Your doctor will teach you exactly how to inject insulin, but here are the basics: Wash your hands. Take the plastic cover off the insulin bottle and wipe the top of the bottle with a cotton swab dipped in alcohol. Pull back the plunger of the syringe, drawing air into the syringe equal to the dose of insulin that you are taking (measured in units). Put the syringe needle through the rubber top of the insulin bottle. Inject air into the bottle by pushing the syringe plunger forward. Turn the bottle upside down. Pull back on the plunger to draw the insulin into the syringe. Make sure that the tip of the needle is in the insulin. Pull back on the syringe plunger to draw the correct dose of insulin into the syringe. Make sure there are no air bubbles in the syringe before you take the needle out of the insulin bottle. If there are air bubbles, hold the syringe and the bottle straight up, tap the syringe with your finger and let the air bubbles float to the top. Push on the plunger of the syringe to move the air bubbles back into the insulin bottle. Then withdraw the correct insulin dose by pulling back on the plunger. Clean your skin with cotton dipped in alcohol. Grab a fold of skin and inject the insulin under the skin at a 90-degree angle If you're thin, you may need to pinch the skin and inject the insulin at a 45- degree angle. Thin people may find it easier to inject at an angle of 45 degrees. Insulin injected near the stomach works fastest. Insulin injected into the thigh works slowest. Insulin injected into the arm works at medium speed. Other: If you toe pain increases, you see puss coming out of the wound, or you start to have fever or chill, please call 911 or go to the nearest emergency room. If your sugars are over 350 please give yourself the proper dose of insulin and call your doctor. If you can't get in touch with your doctor please go to the nearest emergency room. make sure you cover the ulcer with a clean dry gauze and change daily . and avoid walking bare foot blood work , BMP, LFTS , and CRP to be done weekly by [facility]NS and to be sent to Dr. 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 please visit in 2 weeks Referrals: Tirso Nunez MD [Staff Physician] - 2 Weeks Dee Allen MD [Staff Physician] - 1 Week Adri Duckworth DPM [Staff Physician] - 1 Week Disposition: VNS/HOME HEALTH CARE - Home Medications Comprehensive Discharge Medication List: Ambulatory Orders Ceftriaxone [Rocephin -] 2 gm IVPB DAILY vial 02/08/20 Collagenase Clostridium Hist. [Santyl -] 1 applic TP DAILY tube 02/08/20 Insulin (Levemir) [Levemir Vial] 10 unit SQ DAILY 30 Days #1 vial 02/08/20 Insulin Aspart [Novolog] See Protocol SQ TID 30 Days #1 cartridge 02/08/20 Lancets [Lancets Thin] 1 each ACHS #200 each 02/08/20 Miscellaneous Medical Supply [Glucometer Device] 1 each SQ ASDIR #1 kit 02/08/20 Miscellaneous Medical Supply [Glucometer Test Strips #100] 1 each SQ ASDIR #1 box 02/08/20 Syringe, Disposable, 3 ml [Easy Hayes Luer Lock Syringe] 1 each [facility] #100 disp.syrin 02/08/20 metFORMIN HCL [Metformin HCl ER] 500 mg PO DAILY 30 Days #30 tab.er.24h 02/08/20 This patient is new to me today: No Emergency Visit: Yes ED Registration Date: 02/06/20 Care time: The patient presented to the Emergency Department on the above date and was hospitalized for further evaluation of their emergent condition. Critical Care patient: No - Discharge Referral Referred to [facility] Med [facility].C[facility] No ATTENDING PHYSICIAN STATEMENT I saw and evaluated the patient. I reviewed the resident's note and discussed the case with the resident. I agree with the resident's findings and plan as documented. SUBJECTIVE: OBJECTIVE: ASSESSMENT AND PLAN:
--- NOTE | 2020-02-08 16:24 | PN ---
Progress Note, Physician History of Present Illness: Pt seen and examined at bedside. He is awake and alert. He denies dysuria. - Current Medication List Current Medications: Active Medications Collagenase (Santyl -) 1 applic TP DAILY DEBBIE; Protocol Last Admin: 02/08/20 11:44 Dose: 1 appful Documented by: Heparin Sodium (Porcine) (Heparin -) 5,000 unit SQ TID DEBBIE Last Admin: 02/08/20 13:57 Dose: 5,000 unit Documented by: Ceftriaxone Sodium 2 gm/ (Dextrose) 100 mls @ 200 mls/hr IVPB DAILY DEBBIE; Protocol Last Admin: 02/08/20 13:57 Dose: 200 mls/hr Documented by: Insulin Aspart (Novolog Vial Sliding Scale -) 1 vial SQ ACHS DEBBIE; Protocol Last Admin: 02/08/20 12:06 Dose: 4 units Documented by: Insulin Detemir (Levemir Vial) 10 units SQ AM DEBBIE - Objective Vital Signs: Vital Signs Temperature 98.4 F 02/08/20 15:01 Pulse Rate 57 L 02/08/20 15:01 Respiratory Rate 18 02/08/20 15:01 Blood Pressure 135/69 02/08/20 15:01 O2 Sat by Pulse Oximetry (%) 100 02/08/20 06:00 Constitutional: Yes: Calm Eyes: Yes: Conjunctiva Clear HENT: Yes: Atraumatic Neck: Yes: Supple Cardiovascular: Yes: S1, S2 Respiratory: Yes: CTA Bilaterally Gastrointestinal: Yes: Soft Genitourinary: Yes: WNL Musculoskeletal: Yes: WNL Edema: No Neurological: Yes: Oriented Psychiatric: Yes: Oriented Labs: CBC, BMP 02/08/20 05:28 02/08/20 05:28 Problem List - Problems (1) CKD (chronic kidney disease) Code(s): N18.9 - CHRONIC KIDNEY DISEASE, UNSPECIFIED (2) Cellulitis Code(s): L03.90 - CELLULITIS, UNSPECIFIED Assessment/Plan Current Medications Generic Name Dose Route Start Last Admin Trade Name Freq PRN Reason Stop Dose Admin Collagenase 1 applic 02/07/20 16:30 02/08/20 11:44 Santyl - TP 1 appful DAILY DEBBIE Administration Protocol Heparin Sodium (Porcine) 5,000 unit 02/06/20 22:00 02/08/20 13:57 Heparin - SQ 5,000 unit TID EDBBIE Administration Ceftriaxone Sodium 2 gm/ 100 mls @ 200 mls/hr 02/08/20 12:30 02/08/20 13:57 Dextrose IVPB 200 mls/hr DAILY DEBBIE Administration Protocol Insulin Aspart 1 vial 02/06/20 22:00 02/08/20 12:06 Novolog Vial Sliding Scale - SQ 4 units ACHS DEBBIE Administration Protocol Insulin Detemir 10 units 02/09/20 07:00 Levemir Vial SQ AM DEBBIE Potassium Phos/Sodium Phos 1 packet 02/08/20 16:22 Phos-Nak Packet - PO 02/08/20 16:23 ONCE ONE Impression 1. CKD 2. hx of left nephrectomy secondary to RCC 3. cellulitis 4. DM poorly controlled Plan - replace phos - renal ultrasound reviewed - renal cyst needs to be followed - pt should follow as outpt - avoid nsaids - detail assembler improved
[2020-02-09] MEDS ORDERED: INSULIN (LEVEMIR) 100 UNITS/ML UNITS SQ SCH (07:00)
== END 2020-02-08 18:09 | disposition home health service (06) | DRG 638 ==
LOC: JER 14:13 → JERBED 19:13 → J7W 20:25
PROVIDERS: ADMIT Internal Medicine; ATTEND Internal Medicine
PROC: 02HV33Z Insertion of Infusion Device into Superior Vena Cava, Percutaneous Approach (ICD-10-PCS; principal; 2020-02-08)
PROC: B518ZZA Fluoroscopy of Superior Vena Cava, Guidance (ICD-10-PCS; 2020-02-08)
DX: E11.621 Type 2 diabetes mellitus with foot ulcer (principal); L97.528 Non-pressure chronic ulcer of other part of left foot with other specified severity; L03.116 Cellulitis of left lower limb; E11.65 Type 2 diabetes mellitus with hyperglycemia; E11.22 Type 2 diabetes mellitus with diabetic chronic kidney disease; N18.9 Chronic kidney disease, unspecified
CPT/HCPCS: 36415; 36558; 71046-TC-FY; 73610-TC-LT-FY; 73630-TC-LT; 73718-TC-LT; 76775-TC; 77001-TC-FY; 80053; 81003; 82436; 82565; 82962; 83036; 83605; 83735; 84100; 84133; 84156; 84300; 85025; 85027; 86140; 87040; 87070; 87077; 87205; 93005; 93010; 99285-25; C1751; J1644; U0003

== ENCOUNTER 2020-04-02 19:58 | Emergency (ER) | payer BC ==
[2020-04-02 20:02] VITALS: BP 117/45; PULSE 64; TEMP 98; BMI 22.4
--- NOTE | 2020-04-02 20:03 | PDOC ---
Rapid Medical Evaluation Time Seen by Provider: 04/02/20 20:00 Medical Evaluation: Allergies Allergy/AdvReac Type Severity Reaction Status Date / Time No Known Allergies Allergy Verified 02/06/20 17:22 04/02/20 20:00 I performed a brief in-person evaluation of this patient. Pt is a 59 y/o male who presents to the ED for a PICC line removal. He states the visiting nurse was unable to remove the PICC line. The patient states he came to the ED because he is unable to see his doctor until next Tuesday and did not know what to do. Pt had the PICC line for osteomyelitis of the foot. The PICC has been in for 8 weeks. Pertinent physical exam findings: Speaking in full sentences, I have ordered the following: none Patient to proceed to ED for further evaluation. Discharge Disposition - Diagnosis S/P PICC central line placement - Referrals - Patient Instructions - Post Discharge Activity
--- OUTSIDE RECORDS SUMMARY | 2020-04-02 20:37 | XMS ---
:1960 Author Organization [facility] Support Name Relationship Address Phone ADAM DOMÍNGUEZ FRIEND N/A MD SHEBA [id number] [employer] Unavailable [address] [place] [address] Re-disclosure Warning The records that you are about to access may contain information from federally- assisted alcohol or drug abuse programs. If such information is present, then the following federally mandated warning applies: This information has been disclosed to you from records protected by federal confidentiality rules (42 CFR part 2). The federal rules prohibit you from making any further disclosure of this information unless further disclosure is expressly permitted by the written consent of the person to whom it pertains or as otherwise permitted by 42 CFR part 2. A general authorization for the release of medical or other information is NOT sufficient for this purpose. The Federal rules restrict any use of the information to criminally investigate or prosecute any alcohol or drug abuse patient.The records that you are about to access may contain highly sensitive health information, the redisclosure of which is protected by Article 27-F of the [place] Public Health law. If you continue you may haveaccess to information: Regarding HIV / AIDS; Provided by facilities licensed or operated by the [place] Office of Mental Health; or Provided by the [place] Office for People With Developmental Disabilities. If such information is present, then the following [place] mandated warning applies: This information has been disclosed to you from confidential records which are protected by state law. State law prohibits you from making any further disclosure of this information without the specific written consent of the person to whom it pertains, or as otherwise permitted by law. Any unauthorized further disclosure in violation of state law may result in a fine or alf sentence or both. A general authorization for the release of medical or other information is NOT sufficient authorization for further disclosure. Family History Family Member Family Member Family Member Date of Description Data Source(s) Name Gender Status Status Unknown Unknown Problem [facility] ([facility]) Unknown Unknown Problem [facility] ([facility]) Unknown Unknown Problem [facility] ([facility]) Insurance Providers Payer Policy type / Policy ID Covered Covered republican's Policy Plan name Coverage type republican ID relationship to [place] Information benson [facility] [id number] [facility]/Onset Finding Something 3 Card
--- NOTE | 2020-04-02 22:49 | PDOC ---
History of Present Illness - General Chief Complaint: Bleeding from PICC Line Stated Complaint: PICK LINE REMOVAL Time Seen by Provider: 04/02/20 20:00 History Source: Patient Exam Limitations: No Limitations - History of Present Illness Initial Comments: 04/02/20 22:46 59-year-old male past medical history of diabetes and recent osteomyelitis with PICC line insertion. Patient was instructed to PICC line removed 2 weeks ago however patient was unable to comply today a visiting nurse came to his house and tried to remove the PICC line however patient has not been flushing PICC line with heparin for several days. Patient states the nurse was unable to remove the PICC line and told him to present to the ED. Pt otherwise denies: fevers, chills, syncope, lightheadedness, dizziness, headaches, neck pain, chest pain, shortness of breath, palpitations, back pain, abdominal pain, nausea, vomiting, diarrhea, constipation. Past History - Medical History Allergies/Adverse Reactions: Allergies Allergy/AdvReac Type Severity Reaction Status Date / Time No Known Allergies Allergy Verified 04/02/20 20:02 Home Medications: Ambulatory Orders Ceftriaxone [Rocephin -] 2 gm IVPB DAILY vial 02/08/20 Insulin (Levemir) [Levemir Vial] 10 unit SQ DAILY 30 Days #1 vial 02/08/20 Insulin Aspart [Novolog] See Protocol SQ TID 30 Days #1 cartridge 02/08/20 metFORMIN HCL [Metformin HCl ER] 500 mg PO DAILY 30 Days #30 tab.er.24h 02/08/20 Cancer: Yes (NEPHRECTOMY) COPD: No Diabetes: Yes (NIDDM) - Surgical History Neurologic Surgery: Yes (NEPHRECTOMY) - Immunization History Immunization Up to Date: No - Psycho-Social/Smoking History Smoking History: Never smoked Have you smoked in the past 12 months: No - Substance Abuse Hx (Audit-C & DAST Scrn) How often the patient has a drink containing alcohol: Never Score: In Men: 4 or > Positive; In Women: 3 or > Positive: 0 Screen Result (Pos requires Nsg. Audit-10AR): Negative In the last yr the pt used illegal drug/Rx for NonMed reason: No Score: Yes response is considered Positive: 0 Screen Result (Positive result requires Nsg. DAST-10): Negative *Physical Exam - Vital Signs Last Vital Signs Temp Pulse Resp BP Pulse Ox 98.0 F 64 18 117/45 L 100 04/02/20 20:00 04/02/20 20:00 04/02/20 20:00 04/02/20 20:00 04/02/20 20:00 - Physical Exam 04/02/20 22:47 Gen: AAOx 3, no acute distress, comfortable, no signs of respiratory distress HENT: atraumatic, normocephalic with no laceration or contusion. Nasal mucosa without erythema. Oropharynx without erythema or exudates. Mucous membranes moist. EYES: PERRL, EOM intact, conjunctiva pink NECK: supple; trachea midline; no JVD, no lymphadenopathy, or thyromegaly CV: RRR no murmurs, gallops, or rubs. CHEST: There is a PICC line inserted on the right anterior chest wall without sutures in place. CTA b/l no wheezing, rales or rhonchi ABD: +BS/ND. no TTP; soft, no rebound, no guarding EXTREMITY: no cyanosis or erythema. 2+ dorsalis pedis, posterior tibial, and radial pulse. No pedal edema; no calf swelling or tenderness SKIN: no rash, warm and dry, no diaphoresis HEME: no purpura or ecchymosis NEURO: normal speech, CN II-XII intact, sensation intact, normal gait, no cerebellar deficits MS: 5/5 strength in all extremities, FROM intact in all extremities. Medical Decision Making - Medical Decision Making 04/02/20 22:47 59-year-old male with PICC line stuck Vital signs stable I called attending to bedside to help evaluate patient attending and I both attempted to remove the PICC line however when palpating you could see a point at which the PICC line is adhered to what appears to be the vessel wall at this point the attending and I stopped our attempts of trying to remove the PICC line. We advised the patient that since he is in no acute distress at this time to return tomorrow when both vascular surgery and IR are present that way he would be able to have the PICC line safely removed. Patient agrees with and understands this plan and agrees to return tomorrow for PICC line removal. Pt appears well and is safe and stable for discharge with strict return precautions including signs and symptoms requring immediate return to the ED Supportive care instructions explained and given to pt. Reasons to return emergently to ER explained and given. Importance of follow up with PMD and other specialists as indicated stressed to pt. Pt verbalized understanding of instructions. Pt to follow up with PMD in 2 days. Discharge - Discharge Information Problems reviewed: Yes Clinical Impression/Diagnosis: S/P PICC central line placement Condition: Stable Disposition: HOME - Follow up/Referral - Patient Discharge Instructions Patient Printed Discharge Instructions: Peripherally Inserted Central Catheter Additional Instructions: PLEASE RETURN TOMORROW TO BE EVALUATED BY INTERVENTIONAL RADIOLOGY - Post Discharge Activity Work/Back to School Note: Back to Work
--- NOTE | 2020-04-02 23:06 | PDOC ---
*Physical Exam - Vital Signs Last Vital Signs Temp Pulse Resp BP Pulse Ox 98.0 F 64 18 117/45 L 100 04/02/20 20:00 04/02/20 20:00 04/02/20 20:00 04/02/20 20:00 04/02/20 20:00 Medical Decision Making - Medical Decision Making 04/02/20 23:05 Patient seen by the advanced practice provider under my supervision. Ancillary testing reviewed as necessary. I agree with plan as outlined by the advanced practice provider. Discharge - Discharge Information Problems reviewed: Yes Clinical Impression/Diagnosis: S/P PICC central line placement Condition: Stable Disposition: HOME - Follow up/Referral - Patient Discharge Instructions Patient Printed Discharge Instructions: Peripherally Inserted Central Catheter Additional Instructions: PLEASE RETURN TOMORROW TO BE EVALUATED BY INTERVENTIONAL RADIOLOGY - Post Discharge Activity Work/Back to School Note: Back to Work
== END 2020-04-02 23:00 | disposition home or self-care (01) ==
LOC: JER 19:58
DX: Z45.2 Encounter for adjustment and management of vascular access device (principal)
CPT/HCPCS: 99283-25

== ENCOUNTER 2020-04-03 08:27 | Emergency (ER) | payer BC ==
[2020-04-03 08:35] VITALS: BP 134/58; PULSE 51; TEMP 98.3; BMI 22.4
--- OUTSIDE RECORDS SUMMARY | 2020-04-03 08:53 | XMS ---
:1960 Author Organization [facility] Support Name Relationship Address Phone ADAM DOMÍNGUEZ FRIEND N/A MD SHEBA [id number] [employer] Unavailable [address] [place] [address] Re-disclosure Warning The records that you are [...] is protected by Article 27-F of the [facility] Public Health law. If you continue you may haveaccess to information: Regarding HIV / AIDS; Provided by facilities licensed or operated by the [facility] Office of Mental Health; or Provided by the [facility] Office for People With Developmental Disabilities. If such information is present, then the following [facility] mandated warning applies: This information has been [...] law may result in a fine or long term sentence or both. A general authorization for the release of medical or other information is NOT sufficient authorization for further disclosure. Family History Family Member Family Member Family Member Date of Description Data Source(s) Name Gender Status Status Unknown Unknown Problem [facility] ([facility]) Unknown Unknown Problem [facility] ([facility]) Unknown Unknown Problem [facility] ([facility]) Insurance Providers Payer Policy type / Policy ID Covered Covered green party's Policy Plan name Coverage type green party ID relationship to [place] Information benson [facility] [id number] [address] [place] [id number] [facility]/[place] [employer] [facility]
--- NOTE | 2020-04-03 09:49 | PDOC ---
History of Present Illness - General Chief Complaint: Bleeding from PICC Line Stated Complaint: PIK LINE REMOVAL Time Seen by Provider: 04/03/20 08:53 History Source: Patient Exam Limitations: No Limitations - History of Present Illness Initial Comments: 04/03/20 09:47 59y M with PMH of DM, CKD, Nephrectomy 2/2 RCC, PICC line insertion 02/08/2020 for osteomyelitis presenting to the ER for PICC removal. Pt presented last night, unable to be removed likely 2/2 clot and was advised to return in the AM. Line was inserted by IR. Pt denies chest pain, sob, n/v/d, fevers, extremity swelling, weakness, numbness/tingling. Has finished antibiotic course and was to get line removed 2 weeks ago. Past History - Medical History Allergies/Adverse Reactions: Allergies Allergy/AdvReac Type Severity Reaction Status Date / Time No Known Allergies Allergy Verified 04/03/20 08:29 Home Medications: Ambulatory Orders Insulin (Levemir) [Levemir Vial] 10 unit SQ DAILY 30 Days #1 vial 02/08/20 Insulin Aspart [Novolog] See Protocol SQ TID 30 Days #1 cartridge 02/08/20 Cancer: Yes (NEPHRECTOMY) COPD: No Diabetes: Yes (NIDDM) - Surgical History Neurologic Surgery: Yes (NEPHRECTOMY) - Immunization History Immunization Up to Date: No - Psycho-Social/Smoking History Smoking History: Never smoked Have you smoked in the past 12 months: No - Substance Abuse Hx (Audit-C & DAST Scrn) How often the patient has a drink containing alcohol: Monthly or less Number of drinks the patient has on a typical day: 1 or 2 How often the patient has six or more drinks on one occasion: Never Score: In Men: 4 or > Positive; In Women: 3 or > Positive: 1 Screen Result (Pos requires Nsg. Audit-10AR): Negative In the last yr the pt used illegal drug/Rx for NonMed reason: No Score: Yes response is considered Positive: 0 Screen Result (Positive result requires Nsg. DAST-10): Negative Review of Systems - Review of Systems Constitutional: No: Symptoms Reported HEENTM: No: Symptoms Reported Respiratory: No: Symptoms reported Cardiac (ROS): No: Symptoms Reported ABD/GI: No: Symptoms Reported : No: Symptoms Reported Musculoskeletal: No: Symptoms Reported Integumentary: No: Symptoms Reported Neurological: No: Symptoms reported *Physical Exam - Vital Signs Last Vital Signs Temp Pulse Resp BP Pulse Ox 98.3 F 51 L 18 134/58 L 100 04/03/20 08:32 04/03/20 08:32 04/03/20 08:32 04/03/20 08:32 04/03/20 08:32 - Physical Exam General Appearance: Yes: Nourished, Appropriately Dressed. No: Apparent Distress HEENT: positive: EOMI, SUSY, Normal ENT Inspection Neck: positive: Trachea midline, Supple. negative: Lymphadenopathy (R), Lymphadenopathy (L) Respiratory/Chest: positive: Lungs Clear, Normal Breath Sounds, Other (Tunneled cathter in place, no erythema or induration). negative: Crackles, Rales, Rhonchi, Stridor, Wheezing Cardiovascular: positive: Regular Rhythm, Regular Rate, S1, S2. negative: Edema, JVD, Murmur Vascular Pulses: Dorsalis-Pedis (R): 2+, Doralis-Pedis (L): 2+ Gastrointestinal/Abdominal: positive: Normal Bowel Sounds, Soft. negative: Tender Musculoskeletal: negative: CVA Tenderness Extremity: positive: Normal Capillary Refill. negative: Pedal Edema, Swelling, Calf Tenderness Integumentary: positive: Normal Color, Dry, Warm Neurologic: positive: pulmonary physical therapist II-XII NML intact, Fully Oriented, Alert, Normal Mood/Affect, Normal Response, Motor Strength 5/5 ED Treatment Course - LABORATORY CBC & Chemistry Diagram: 04/03/20 10:50 04/03/20 10:50 Medical Decision Making - Medical Decision Making 04/03/20 19:18 59y M presenting for removal of PICC line. vitals wnl. will call IR: Dr. Guo not in, will come in afternoon. Tried discussing case with surgery: IR must remove. pt will wait. will draw preop labs discussed case with Dr. Denney: pt will need to schedule removal as outpatient. will need script. discussed with pt; will provide with script and number to contact. pt understads. return precautions provided. labs wnl. will dc home. Discharge - Discharge Information Problems reviewed: Yes Clinical Impression/Diagnosis: Intravenous catheter in place Condition: Good Disposition: HOME - Admission No - Follow up/Referral - Patient Discharge Instructions Additional Instructions: Please call to schedule the removal of the tunneled catheter. This was placed by Dr. Guo. Please take the prescription with you. Come back to the ER if you have redness in the area, have difficulty breathing, swelling in the arm or if any new or concerning symptom develops. Thank you - Post Discharge Activity
--- NOTE | 2020-04-03 09:51 | PDOC ---
Documentation entered by Presley Francis SCRIBE, acting as scribe for Darrell Shine MD. Darrell Shine MD: This documentation has been prepared by the Tito steinberg Angel, SCRIBE, under my direction and personally reviewed by me in its entirety. I confirm that the documentation accurately reflects all work, treatment, procedures, and medical decision making performed by me. Attending Attestation - Resident Resident Name: Abigail Iraheta - ED Attending Attestation I have performed the following: I have examined & evaluated the patient, The case was reviewed & discussed with the resident, I agree w/resident's findings & plan, Exceptions are as noted - HPI HPI: 04/03/20 09:40 The patient is a 59 year old male with a significant past medical history of diabetes, renal cancer s/p nephrectomy who presents to the ED for a PICC line removal. The patient had the PICC line placed in from a previous hospitalization back in January of this year. The patient was scheduled to get the PICC line removed 2 weeks ago but was unable to make it. The patient came in yesterday to have it removed but staff was unsuccessful because the PICC line was adhered to the skin and was told to come back in today. The patient has no complaints here in the ED. - Physicial Exam PE: 04/03/20 09:39 exam: general: no acute distress skin: picc line in the left chest, no tenderness/fluctuance/induration, slight erythema that is not warm to the insertion point. - Medical Decision Making 04/03/20 09:51 will dw surgery regarding removal
[2020-04-03 11:17] LABS: BASO % 2.3 % (0-2.0); EOS % 1.9 % (0-4.5); HEMATOCRIT 35.9 % (35.4-49); HEMOGLOBIN 11.8 GM/dL (11.7-16.9); LYMPH % 22.8 % (8-40); MCH 29.8 pg (25.7-33.7); MEAN CELL VOLUME 90.5 fl (80-96); MEAN PLT VOLUME 9.9 fl (7.5-11.1); PLATELET COUNT 202 K/MM3 (134-434); RBC 3.97 M/mm3 (4.00-5.60); RDW 15.5 % (11.9-15.9); WHITE BLOOD COUNT 7.3 K/mm3 (4.0-10.0)
[2020-04-03 11:20] LABS: INR 0.92 (0.83-1.09); PROTHROMBIN TIME (PATIENT) 11.2 SEC (9.7-13.0)
[2020-04-03 11:23] LABS: ACTIVATED PTT 32.5 SECONDS (25.2-36.5)
[2020-04-03 11:54] LABS: ALBUMIN 3.5 g/dl (3.4-5.0); BILIRUBIN,TOTAL 0.3 mg/dL (0.2-1); BLOOD UREA NITROGEN 28.2 mg/dL (7-18); CALCIUM 8.7 mg/dL (8.5-10.1); CREATININE 1.9 mg/dL (0.55-1.3); POTASSIUM 3.4 mmol/L (3.5-5.1); TOT PROT 6.6 g/dl (6.4-8.2)
[2020-04-03] MEDS ORDERED: PRESCRIPTION PAD 1 EACH EACH NR ONE (16:28)
== END 2020-04-03 16:52 | disposition home or self-care (01) ==
LOC: JER 08:27
DX: Z45.2 Encounter for adjustment and management of vascular access device (principal)
CPT/HCPCS: 36415; 80053; 85025; 85610; 85730; 86850; 86900; 86901; 99283-25